=== PATIENT | female | born 1945 | race Caucasian/White ===

== ENCOUNTER 2016-07-28 10:05 | Outpatient (CLI) | payer MEDICARE, OTHER ==
--- NOTE | 2016-08-01 21:47 | Mammography Report ---
DIGITAL BILATERAL SCREENING MAMMOGRAM: 08/01/2016 CLINICAL HISTORY: This is a 71-year-old female in for routine screening mammogram. Patient has had no family history of breast cancer. Patient has had prior breast surgery. She had a benign right breast biopsy in 1963. COMPARISON: 07/28/2015 TECHNIQUE: Craniocaudad and oblique lateral views of each breast were obtained with Hologic full field digital mammography. FINDINGS: Breast parenchymal pattern consists of scattered fibroglandular densities. No change is noted. IMPRESSION: BREASTS APPEAR RADIOGRAPHICALLY BENIGN. BIRADS CATEGORY: 1, NEGATIVE. RECOMMENDATION: ANNUAL BILATERAL SCREENING MAMMOGRAPHY. STANDARD QUALIFYING STATEMENTS 1. This examination was reviewed with the aid of Computed-Aided Detection (CAD) . 2. A negative or benign imaging report should not delay biopsy if clinically suspicious findings are present. Consider surgical consultation if warranted. More than 5% of cancers are not identified by imaging. 3. Dense breasts may obscure an underlying neoplasm. JOB #: [id number] EXT JOB #: [id number] LEON
== END 2016-07-28 10:06 | disposition home or self-care (01) ==
LOC: DI.N 10:05
PROVIDERS: ATTEND Family Medicine
DX: Z12.31 Encounter for screening mammogram for malignant neoplasm of breast (principal)
CPT/HCPCS: 77067

== ENCOUNTER 2016-09-13 07:47 | Outpatient (CLI) | payer MEDICARE, OTHER ==
[2016-09-13 13:14] LABS: ALBUMIN/GLOBULIN RATIO 1.4 (1.0-2.2); BASOPHILS # (AUTO) 0.1 10^3/uL (0.0-0.1); BASOPHILS % (AUTO) 1.4 %; BILIRUBIN,TOTAL 0.5 mg/dL (0.2-1.0); BUN - BLOOD UREA NITROGEN 17 mg/dL (6-20); CALCIUM 9.5 mg/dL (8.5-10.3); CARBON DIOXIDE - CO2 30 mmol/L (21-32); CHLORIDE 104 mmol/L (101-111); CHOL/HDL RATIO 3.7 (<4.4); CHOLESTEROL 184 mg/dL; CREATININE 1.1 mg/dL (0.4-1.0); EOSINOPHILS # (AUTO) 0.2 10^3/uL (0.0-0.7); EOSINOPHILS % (AUTO) 2.4 %; GFR - MDRD 49 (>89); GLUCOSE 84 mg/dL (70-100); HCT - HEMATOCRIT 42.7 % (37.0-47.0); HDL CHOLESTEROL 50 mg/dL; HGB - HEMOGLOBIN 14.8 g/dL (12.0-16.0); LDL/HDL RATIO 1.9 (<4.4); LYMPHOCYTES % (AUTO) 29.5 %; MEAN CORPUSCULAR HEMOGLOBIN 30.5 pg (27.0-31.0); MEAN CORPUSCULAR HGB CONC 34.5 g/dL (32.0-36.0); MEAN CORPUSCULAR VOLUME 88.4 fL (81.0-99.0); MEAN PLATELET VOLUME 8.1 fL (7.9-10.8); MONOCYTES # (AUTO) 0.6 10^3/uL (0.0-1.0); NEUTROPHILS # (AUTO) 3.9 10^3/uL (1.5-6.6); NEUTROPHILS % (AUTO) 57.7 %; RED BLOOD COUNT 4.83 10^6/uL (4.20-5.40); RED CELL DISTRIBUTION WIDTH 13.2 % (12.0-15.0); SODIUM 141 mmol/L (135-145); TRIGLYCERIDES 197 mg/dL; UNCORRECTED WHITE BLOOD COUNT 6.8 x10^3/uL; VLDL CHOLESTEROL 39 mg/dL; WHITE BLOOD COUNT 6.8 x10^3/uL (4.8-10.8)
== END 2016-09-13 07:48 | disposition home or self-care (01) ==
LOC: LAB.WCP 07:47
PROVIDERS: ATTEND Family Medicine
DX: I10 Essential (primary) hypertension (principal); E78.5 Hyperlipidemia, unspecified; E03.9 Hypothyroidism, unspecified
CPT/HCPCS: 36415; 80053; 80061; 84443; 85025

== ENCOUNTER 2016-10-09 09:21 | Outpatient (CLI) | payer MEDICARE, OTHER ==
--- NOTE | 2016-10-09 13:38 | Ultrasound Report ---
BILATERAL LOWER EXTREMITY ARTERIAL DUPLEX: 10/09/2016 CLINICAL INDICATION: Intermittent claudication. TECHNIQUE: Real-time sonographic vascular imaging was performed by the rum processing operator through the lower extremities utilizing both color-flow and Doppler spectral analysis. Multiple field support representative static images were saved for review. RIGHT SIDE SITE PSV WAVEFORM STEN HAND DRAWER IN HELPER 91 biphasic PSFA 73 biphasic MSFA 67 biphasic DSFA 48 biphasic PFA 94 biphasic POP 62 biphasic DEMARCO 40 biphasic COMMUNITY NURSE 30 biphasic PER 45 biphasic DPA 36 biphasic LEFT SIDE SITE PSV WAVEFORM STEN HAND DRAWER IN HELPER 103 biphasic PSFA 102 biphasic MSFA 64 biphasic DSFA 92 biphasic PFA 98 biphasic POP 72 biphasic DEMARCO 32 biphasic COMMUNITY NURSE 37 biphasic PER 47 biphasic DPA 52 biphasic FINDINGS: RIGHT LEG: Waveforms are diffusely biphasic. There is no evidence of a focal velocity increase to suggest a hemodynamically significant stenosis. LEFT LEG: Waveforms are diffusely biphasic. There is no evidence of a focal velocity increase to suggest a hemodynamically significant stenosis. IMPRESSION: NO EVIDENCE OF A HEMODYNAMICALLY SIGNIFICANT ARTERIAL STENOSIS IN EITHER LEG. MTDD
== END 2016-10-09 09:22 | disposition home or self-care (01) ==
LOC: DI 09:21
PROVIDERS: ATTEND Physician Assistant Medical
DX: I73.9 Peripheral vascular disease, unspecified (principal); I25.10 Atherosclerotic heart disease of native coronary artery without angina pectoris
CPT/HCPCS: 93925

== ENCOUNTER 2017-02-12 08:00 | Outpatient (CLI) | payer MEDICARE, OTHER ==
[2017-02-12 12:29] LABS: BASOPHILS # (AUTO) 0.1 10^3/uL (0.0-0.1); BASOPHILS % (AUTO) 1.9 %; EOSINOPHILS # (AUTO) 0.2 10^3/uL (0.0-0.7); HCT - HEMATOCRIT 42.9 % (37.0-47.0); HGB - HEMOGLOBIN 14.8 g/dL (12.0-16.0); LYMPHOCYTES # (AUTO) 1.9 10^3/uL (1.5-3.5); LYMPHOCYTES % (AUTO) 26.7 %; MEAN CORPUSCULAR HEMOGLOBIN 30.5 pg (27.0-31.0); MEAN CORPUSCULAR HGB CONC 34.5 g/dL (32.0-36.0); MEAN CORPUSCULAR VOLUME 88.2 fL (81.0-99.0); MEAN PLATELET VOLUME 8.2 fL (7.9-10.8); MONOCYTES # (AUTO) 0.6 10^3/uL (0.0-1.0); MONOCYTES % (AUTO) 8.9 %; NEUTROPHILS # (AUTO) 4.2 10^3/uL (1.5-6.6); NEUTROPHILS % (AUTO) 59.5 %; NUCLEATED RED BLOOD CELLS AUTO 0.1 /100WBC; RED BLOOD COUNT 4.86 10^6/uL (4.20-5.40); RED CELL DISTRIBUTION WIDTH 13.3 % (12.0-15.0)
[2017-02-12 12:42] LABS: ALBUMIN/GLOBULIN RATIO 1.5 (1.0-2.2); BILIRUBIN,TOTAL 0.6 mg/dL (0.2-1.0); BUN - BLOOD UREA NITROGEN 19 mg/dL (6-20); CALCIUM 9.6 mg/dL (8.5-10.3); CARBON DIOXIDE - CO2 26 mmol/L (21-32); CHLORIDE 105 mmol/L (101-111); CHOL/HDL RATIO 3.7 (<4.4); CHOLESTEROL 193 mg/dL; GFR - MDRD 54 (>89); GLUCOSE 95 mg/dL (70-100); HDL CHOLESTEROL 52 mg/dL; SODIUM 140 mmol/L (135-145); TOTAL PROTEIN 7.3 g/dL (6.7-8.2); TRIGLYCERIDES 174 mg/dL; VLDL CHOLESTEROL 35 mg/dL
[2017-02-12 12:43] LABS: BILIRUBIN,URINE NEGATIVE (NEGATIVE); PH,URINE 5.5 PH (5.0-7.5)
[2017-02-12 12:56] LABS: THYROID STIMULATING HORMONE 7.23 uIU/mL (0.34-5.60)
[2017-02-12 13:06] LABS: UR CULTURE IF IND NOT INDICATED; WBC,URINE 0-3 /HPF (0-5)
== END 2017-02-12 08:01 | disposition home or self-care (01) ==
LOC: LAB.WCP 08:00
PROVIDERS: ATTEND Family Medicine
DX: I10 Essential (primary) hypertension (principal); R31.9 Hematuria, unspecified; E03.9 Hypothyroidism, unspecified
CPT/HCPCS: 36415; 80053; 80061; 81001; 84439; 84443; 85025; 87086

== ENCOUNTER 2017-02-16 07:59 | Outpatient (CLI) | payer MEDICARE, OTHER ==
[2017-02-16] MEDS ORDERED: IOPAMIDOL-300 50 ML VIAL ONE (08:16)
[2017-02-16] MEDS ORDERED: IOPAMIDOL-300 100 ML VIAL ONE (08:16)
[2017-02-16] MEDS ORDERED: IOPAMIDOL-300 100 ML VIAL IVP ONE (09:43)
[2017-02-16] MEDS ORDERED: IOPAMIDOL-300 50 ML VIAL PO ONE (09:43)
--- NOTE | 2017-02-18 14:44 | CT Report ---
EXAM: CT ABDOMEN AND PELVIS EXAM DATE: 02/16/2017 09:46 AM. CLINICAL HISTORY: ABDOMINAL PAIN,LLQ. CHANGES IN BOWELS. COMPARISONS: CT 06/21/2015. TECHNIQUE: Routine helical CT imaging was performed through the abdomen and pelvis. IV contrast: 50 m L Isovue 300. Enteric contrast: Positive. Reconstructions: Coronal and sagittal. In accordance with CT protocol optimization, one or more of the following dose reduction techniques w ere utilized for this exam: automated exposure control, adjustment of mA and/or KV based on patient s ize, or use of iterative reconstructive technique. FINDINGS: Lung Bases: Calcified right hilar, mediastinal lymph nodes. Linear scarring/atelectasis in the lingul a. Liver: Normal. No masses. Gallbladder/Bile Ducts: Unremarkable. Spleen: Normal. Pancreas: Normal. Adrenal Glands: Normal. Kidneys: No hydronephrosis or solid renal mass. Right lower pole renal cortical hypodensity appears t o be fat density, likely small angiomyolipoma, stable from prior. Peritoneal Cavity/Bowel: No free air or free fluid. No lymphadenopathy. Mild diverticulosis without e vidence of acute diverticulitis. Appendix is not clearly visualized; no pericecal inflammatory change s are evident. There are a few nonspecific subcentimeter bilateral inguinal lymph nodes, which may be reactive. Pelvic Organs: The uterus is absent. Adnexal structures are unremarkable. Urinary bladder is unremark able. Vasculature: Unremarkable. Scattered mild atherosclerotic calcification. Bones: No acute abnormality. Moderate bilateral hip joint DJD. Lumbar spinal degeneration. Other: None. IMPRESSION: 1. No convincing acute abdominopelvic findings. 2. Stable small right renal angiomyolipoma. 3. Diverticulosis without evidence of diverticulitis. 4. Hysterectomy. 5. Other findings as noted above. [facility] Referring Provider Line: [phone] SITE ID: [id number]
== END 2017-02-16 08:00 | disposition home or self-care (01) ==
LOC: DI 07:59
PROVIDERS: ATTEND Physician Assistant Medical
DX: R10.32 Left lower quadrant pain (principal); D17.71 Benign lipomatous neoplasm of kidney; K57.30 Diverticulosis of large intestine without perforation or abscess without bleeding; Z90.710 Acquired absence of both cervix and uterus
CPT/HCPCS: 74177

== ENCOUNTER 2017-02-16 11:49 | Emergency (ER) | payer MEDICARE, OTHER ==
[2017-02-16 12:09] VITALS: BP 157/102
--- NOTE | 2017-02-16 12:38 | ED Physician Documentation ---
PD HPI UPPER EXT INJURY - Stated complaint Stated Complaint: MED REACTION/L ARM PX - Chief complaint Chief Complaint: Ext Problem - History obtained from History obtained from: Patient - History of Present Illness Location: Other (She was having IV contrast enhanced CT scan for some ongoing abdominal complaints order as an outpatient today, she had a small amount of contrast infiltration in the left antecubital fossa with extreme pain at the time but the pain is much better now and she declines any pain medication.) Review of Systems Constitutional: reports: Reviewed and negative Cardiac: reports: Reviewed and negative Respiratory: reports: Reviewed and negative PD PAST MEDICAL HISTORY - Past Medical History Cardiovascular: Hypertension Respiratory: Asthma Neuro: Headache/migraine Endocrine/Autoimmune: HyPOthyroidism GI: Chronic constipation : None HEENT: Chronic vision loss Psych: None Musculoskeletal: Osteoarthritis Derm: Psoriasis - Past Surgical History 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 HEENT: Tonsil/Adenoidectomy - Present Medications Home Medications: Ambulatory Orders Medication Instructions Recorded Confirmed Amitriptyline HCl 25 mg PO DAILY 09/24/14 06/08/15 Benazepril/Hydrochlorothiazide 20 mg PO DAILY 09/24/14 06/08/15 [Benazepril-Hctz 20-12.5 mg Tab] Calcium Carbonate [Calcium] 500 mg PO DAILY 09/24/14 06/08/15 Celecoxib [Celebrex] 200 mg PO DAILY 09/24/14 06/08/15 Cetirizine HCl [All Day Allergy] 10 mg PO DAILY 09/24/14 06/08/15 Cyanocobalamin (Vitamin B-12) 500 mcg PO DAILY 09/24/14 06/08/15 [B-12] Fish Oil/Dha/Epa [Fish Oil 1,200 1 tab ORAL DAILY 09/24/14 06/08/15 mg Fish Oil] Levothyroxine Sodium 100 mcg PO DAILY 09/24/14 06/08/15 Magnesium 250 mg PO DAILY 09/24/14 06/08/15 Multivitamin/Iron/Folic Acid [Eq 1 tab PO DAILY 09/24/14 06/08/15 Complete Multivitamin Tab] Omeprazole [PriLOSEC] 20 mg PO DAILY 09/24/14 06/08/15 Simvastatin 40 mg PO DAILY 09/24/14 06/08/15 Vit E AC/Vit K1/Safflower Oil 400 mg PO DAILY 09/24/14 06/08/15 [Vitamin E Oil-Vitamin K] Acyclovir 800 mg ORAL DAILY 06/08/15 06/08/15 Ondansetron HCl [Zofran] 4 mg PO Q6H PRN #10 tablet 06/08/15 SUMAtriptan [Imitrex] 25 mg PO BID PRN #10 tablet 06/08/15 - Allergies Allergies/Adverse Reactions: Allergies Allergy/AdvReac Type Severity Reaction Status Date / Time ibuprofen [From Motrin] Allergy Severe Anaphylaxis Verified 02/16/17 12:09 nifedipine [From Adalat] Allergy Severe Edema Verified 02/16/17 12:09 codeine AdvReac Intermediate Emesis Verified 02/16/17 12:09 - Social History Does the pt smoke?: No Smoking Status: Never smoker Does the pt drink ETOH?: No Does the pt have substance abuse?: No - Immunizations Immunizations are current?: Yes PD ED PE NORMAL - Vitals Vital signs reviewed: Yes - General General: Alert and oriented X 3, No acute distress - Extremities Extremities: Other (In the left antecubital fossa I can see where the IV was. The IV has since been removed. There is a small area of swelling there, I would estimate no more than 10 mL of contrast infiltration. There is no tenderness and she has full range of motion of the elbow, good pulses at the wrist, good sensation in all areas of the hand.) - Neuro Neuro: Alert and oriented X 3, Normal speech Results - Vitals Vitals: Vital Signs - 24 hr 02/16/17 12:03 Temperature 36.8 C Heart Rate 58 L Respiratory 16 Rate Blood Pressure 157/102 H O2 Saturation 99 Oxygen O2 Source Room air Departure - Departure Disposition: 01 Home, Self Care Clinical Impression: Contrast media adverse reaction Qualifiers: Encounter type: initial encounter Qualified Code(s): T50.8X5A - Adverse effect of diagnostic agents, initial encounter Condition: Good Record reviewed to determine appropriate education?: Yes Comments: As discussed if pain becomes worse or unbearable despite Tylenol please return for reevaluation, otherwise apply heat and elevate it. Your blood pressure was elevated today on check into the emergency department. This does not mean that you have hypertension, it is a common phenomenon to come to the emergency department and have elevated blood pressure. I recommend that you see your primary care physician within the week to have it rechecked when you are feeling better.
== END 2017-02-16 12:58 | disposition home or self-care (01) ==
LOC: ED 11:49
DX: M79.602 Pain in left arm (principal); T50.8X5A Adverse effect of diagnostic agents, initial encounter; I10 Essential (primary) hypertension; E03.9 Hypothyroidism, unspecified
CPT/HCPCS: 74177; 99282; Q9967

== ENCOUNTER 2017-04-29 10:51 | Emergency (ER) | payer MEDICARE, OTHER ==
[2017-04-29 11:40] LABS: BASOPHILS # (AUTO) 0.1 10^3/uL (0.0-0.1); BASOPHILS % (AUTO) 1.4 %; EOSINOPHILS # (AUTO) 0.2 10^3/uL (0.0-0.7); EOSINOPHILS % (AUTO) 2.4 %; HGB - HEMOGLOBIN 15.3 g/dL (12.0-16.0); LYMPHOCYTES # (AUTO) 1.6 10^3/uL (1.5-3.5); LYMPHOCYTES % (AUTO) 19.9 %; MEAN CORPUSCULAR HEMOGLOBIN 30.8 pg (27.0-31.0); MEAN CORPUSCULAR HGB CONC 34.5 g/dL (32.0-36.0); MEAN CORPUSCULAR VOLUME 89.3 fL (81.0-99.0); MEAN PLATELET VOLUME 8.2 fL (7.9-10.8); MONOCYTES # (AUTO) 0.7 10^3/uL (0.0-1.0); MONOCYTES % (AUTO) 8.6 %; NEUTROPHILS # (AUTO) 5.4 10^3/uL (1.5-6.6); NEUTROPHILS % (AUTO) 67.7 %; PLT - PLATELET COUNT 240 10^3/uL (130-450); RED BLOOD COUNT 4.98 10^6/uL (4.20-5.40); RED CELL DISTRIBUTION WIDTH 13.2 % (12.0-15.0); WHITE BLOOD COUNT 7.9 x10^3/uL (4.8-10.8)
[2017-04-29 11:52] LABS: ALBUMIN 4.5 g/dL (3.2-5.5); ALBUMIN/GLOBULIN RATIO 1.6 (1.0-2.2); BILIRUBIN,TOTAL 0.9 mg/dL (0.2-1.0); CALCIUM 9.8 mg/dL (8.5-10.3); CREATININE 1.4 mg/dL (0.4-1.0); TOTAL PROTEIN 7.3 g/dL (6.7-8.2)
[2017-04-29 12:04] LABS: BILIRUBIN,URINE NEGATIVE (NEGATIVE); GLUCOSE, URINE (UA) NEGATIVE (NEGATIVE); KETONES,URINE (UA) TRACE mg/dL (NEGATIVE); LEUKOCYTE ESTERASE, URINE NEGATIVE (NEGATIVE); NITRITE,URINE NEGATIVE (NEGATIVE); OCCULT BLOOD,URINE NEGATIVE (NEGATIVE); PH,URINE 5.5 PH (5.0-7.5); PROTEIN,URINE TRACE mg/dL (NEGATIVE); UROBILINOGEN,URINE 0.2 (NORMAL) E.U./dL (NORMAL)
[2017-04-29 12:06] LABS: CLARITY,URINE CLEAR (CLEAR)
--- NOTE | 2017-04-29 12:48 | ED Physician Documentation ---
PD HPI SYNCOPE - Stated complaint Stated Complaint: SYNCOPE - Chief complaint Chief Complaint: Neuro - History obtained from History obtained from: Patient, Family - History of Present Illness Witnessed: Witnessed Timing - onset: Enter time, Today Duration: Seconds Preceding symptoms: Vision changes, Diaphoresis, Light headed, Generalized weakness Associated symptoms: No: Seizure, Incontinant of urine, Incontinant of stool, Headache, Vision changes, Chest pain, Palpitations, Diaphoresis, Dyspnea Contributing factors: Other (The patient has had loose stool for some time) Injury occurred: None Similar symptoms before: Has not had sx before Recently seen: Not recently seen - Additional information Additional information: 72-year-old female was in her usual state of health when she went to [facility] this morning and she was standing in [facility] she developed lightheadedness dizziness blurring of her vision and had to sit down she had about a 10 second episode of syncope after sitting and that she recovered. She is feeling weak nauseated and diaphoretic Review of Systems Constitutional: reports: Fatigue. denies: Fever, Chills, Myalgias Eyes: denies: Decreased vision Ears: denies: Ear pain Nose: denies: Congestion Throat: denies: Sore throat Cardiac: denies: Chest pain / pressure, Palpitations Respiratory: denies: Dyspnea, Cough GI: reports: Diarrhea. denies: Abdominal Pain, Nausea, Vomiting : denies: Dysuria, Frequency Skin: denies: Rash Musculoskeletal: denies: Neck pain, Back pain, Extremity pain Neurologic: reports: Generalized weakness, Syncope. 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 HEENT: Tonsil/Adenoidectomy - Present Medications Home Medications: Ambulatory Orders Medication Instructions Recorded Confirmed Amitriptyline HCl 25 mg PO DAILY 09/24/14 04/29/17 Benazepril/Hydrochlorothiazide 20 mg PO DAILY 09/24/14 04/29/17 [Benazepril-Hctz 20-12.5 mg Tab] Calcium Carbonate [Calcium] 500 mg PO DAILY 09/24/14 04/29/17 Celecoxib [Celebrex] 200 mg PO DAILY 09/24/14 04/29/17 Cetirizine HCl [All Day Allergy] 10 mg PO DAILY 09/24/14 04/29/17 Fish Oil/Dha/Epa [Fish Oil 1,200 1 tab ORAL DAILY 09/24/14 04/29/17 mg Fish Oil] Levothyroxine Sodium 100 mcg PO DAILY 09/24/14 04/29/17 Magnesium 250 mg PO DAILY 09/24/14 04/29/17 Multivitamin/Iron/Folic Acid [Eq 1 tab PO DAILY 09/24/14 04/29/17 Complete Multivitamin Tab] Omeprazole [PriLOSEC] 20 mg PO DAILY 09/24/14 04/29/17 Simvastatin 40 mg PO DAILY 09/24/14 04/29/17 Vit E AC/Vit K1/Safflower Oil 400 mg PO DAILY 09/24/14 04/29/17 [Vitamin E Oil-Vitamin K] Acyclovir 800 mg ORAL DAILY 06/08/15 04/29/17 SUMAtriptan [Imitrex] 25 mg PO BID PRN #10 tablet 06/08/15 04/29/17 Propranolol [Inderal] 80 mg PO DAILY 04/29/17 04/29/17 - Allergies Allergies/Adverse Reactions: Allergies Allergy/AdvReac Type Severity Reaction Status Date / Time ibuprofen [From Motrin] Allergy Severe Anaphylaxis Verified 02/16/17 12:09 nifedipine [From Adalat] Allergy Severe Edema Verified 02/16/17 12:09 codeine AdvReac Intermediate Emesis Verified 02/16/17 12:09 - Social History Does the pt smoke?: No Smoking Status: Never smoker Does the pt drink ETOH?: No Does the pt have substance abuse?: No - Immunizations Immunizations are current?: Yes - POLST Patient has POLST: No PD ED PE NORMAL - Vitals Vital signs reviewed: Yes (Hypertensive mild) - HEENT HEENT: Atraumatic, PERRL, EOMI - Neck Neck: Supple, no meningeal sign, No bony TTP - Cardiac Cardiac: RRR, No murmur - Respiratory Respiratory: No respiratory distress, Clear bilaterally - Abdomen Abdomen: Normal bowel sounds, Soft, Non tender, Non distended, No organomegaly - Back Back: No CVA TTP, No spinal TTP - Derm Derm: Normal color, Warm and dry, No rash - Extremities Extremities: No deformity, No edema - Neuro Neuro: Alert and oriented X 3, 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, No motor deficit, No sensory deficit, Normal speech Eye Opening: Spontaneous Motor: Obeys Commands Verbal: Oriented GCS Score: 15 - Psych Psych: Normal mood, Normal affect Results - Vitals Vitals: Vital Signs - 24 hr 04/29/17 04/29/17 04/29/17 11:07 11:40 12:00 Temperature 36.1 C L Heart Rate 50 L 44 L Heart Rate [ 52 L Sitting] Heart Rate [ 56 L Standing] Heart Rate [ 47 L Supine] Respiratory 14 16 Rate Blood Pressure 135/60 H 132/65 H Blood Pressure 122/77 [Sitting] Blood Pressure 125/77 [Standing] Blood Pressure 132/72 H [Supine] O2 Saturation 97 98 04/29/17 12:44 Temperature Heart Rate 45 L Heart Rate [ Sitting] Heart Rate [ Standing] Heart Rate [ Supine] Respiratory 16 Rate Blood Pressure 119/59 L Blood Pressure [Sitting] Blood Pressure [Standing] Blood Pressure [Supine] O2 Saturation 99 Oxygen O2 Source Room air - EKG (time done) 1105 Rate: Rate (enter#) (50) Rhythm: Sinus bradycardia [place]: LAD QRS: Poor R wave progression Ischemia: Normal ST segments Compare to prior EKG: Old EKG unavailable Computer interpretation: Agree with computer - Labs Labs: Laboratory Tests 04/29/17 04/29/17 04/29/17 11:25 11:28 11:28 WBC 7.9 RBC 4.98 Hgb 15.3 Hct 44.5 MCV 89.3 MCH 30.8 MCHC 34.5 RDW 13.2 Plt Count 240 MPV 8.2 Neut # 5.4 Lymph # 1.6 [place] # 0.7 Eos # 0.2 Baso # 0.1 Absolute Nucleated RBC 0.00 Nucleated RBC % 0.0 Sodium 138 Potassium 4.2 Chloride 104 Carbon Dioxide 25 Anion Gap 9.0 BUN 30 H Creatinine 1.4 H Estimated GFR (MDRD) 37 L Glucose 119 H POC Whole Bld Glucose Calcium 9.8 Total Bilirubin 0.9 AST 31 ALT 20 Alkaline Phosphatase 44 Troponin I < 0.04 Total Protein 7.3 Albumin 4.5 Globulin 2.8 Albumin/Globulin Ratio 1.6 Lipase 38 Urine Color Urine Clarity Urine pH Ur Specific [place] Urine Protein Urine Glucose (UA) Urine Ketones Urine Occult Blood Urine Nitrite Urine Bilirubin Urine Urobilinogen Ur Leukocyte Esterase Ur Microscopic Review Urine Culture Comments 04/29/17 04/29/17 11:38 11:50 WBC RBC Hgb Hct MCV MCH MCHC RDW Plt Count MPV Neut # Lymph # [place] # Eos # Baso # Absolute Nucleated RBC Nucleated RBC % Sodium Potassium Chloride Carbon Dioxide Anion Gap BUN Creatinine Estimated GFR (MDRD) Glucose POC Whole Bld Glucose 110 H Calcium Total Bilirubin AST ALT Alkaline Phosphatase Troponin I Total Protein Albumin Globulin Albumin/Globulin Ratio Lipase Urine Color YELLOW Urine Clarity CLEAR Urine pH 5.5 Ur Specific [place] 1.025 Urine Protein TRACE Urine Glucose (UA) NEGATIVE Urine Ketones TRACE Urine Occult Blood NEGATIVE Urine Nitrite NEGATIVE Urine Bilirubin NEGATIVE Urine Urobilinogen 0.2 (NORMAL) Ur Leukocyte Esterase NEGATIVE Ur Microscopic Review NOT INDICATED Urine Culture Comments NOT INDICATED Procedures - IVC sono (time) 68248 Bedside IVC sono: IVC measures (cm) (1.02), IVC collapsed c insp (cm) (complete) , Dehydration (est 1.5 liter deficit) PD MEDICAL DECISION MAKING - ED course Complexity details: considered differential, d/w patient ED course: 32-year-old female with a syncopal episode at [facility] today is found to be dehydrated. She has been having some loose stool for some time now I suspect she may have something insensible water loss related to that. She also thinks she may not have had as much to drink in the last 2 days as she usually does. She does think that she drinks fluids throughout the day Departure - Departure Disposition: 01 Home, Self Care Clinical Impression: Dehydration Condition: Stable Instructions: ED Dehydration Follow-Up: Yary Gibson PA-C [Primary Care Provider] -
[2017-04-29] MEDS ORDERED: SODIUM CHLORIDE 0.9% 1,000 ML IV ONE (13:00)
[2017-04-29 13:35] VITALS: BP 132/57
== END 2017-04-29 14:30 | disposition home or self-care (01) ==
LOC: ED 10:51
DX: E86.0 Dehydration (principal); I10 Essential (primary) hypertension; J45.909 Unspecified asthma, uncomplicated; E03.9 Hypothyroidism, unspecified; M19.90 Unspecified osteoarthritis, unspecified site
CPT/HCPCS: 36415; 80053; 81001; 81003; 83690; 84484; 85025; 87086; 93005; 96360; 99284

== ENCOUNTER 2017-06-18 07:33 | Outpatient (CLI) | payer MEDICARE, OTHER ==
[2017-06-18 12:58] LABS: BASOPHILS # (AUTO) 0.1 10^3/uL (0.0-0.1); BASOPHILS % (AUTO) 1.8 %; EOSINOPHILS # (AUTO) 0.2 10^3/uL (0.0-0.7); EOSINOPHILS % (AUTO) 3.4 %; HGB - HEMOGLOBIN 14.9 g/dL (12.0-16.0); LYMPHOCYTES # (AUTO) 2.1 10^3/uL (1.5-3.5); LYMPHOCYTES % (AUTO) 30.7 %; MEAN CORPUSCULAR HEMOGLOBIN 30.8 pg (27.0-31.0); MEAN CORPUSCULAR HGB CONC 34.5 g/dL (32.0-36.0); MEAN CORPUSCULAR VOLUME 89.1 fL (81.0-99.0); MEAN PLATELET VOLUME 8.6 fL (7.9-10.8); MONOCYTES # (AUTO) 0.8 10^3/uL (0.0-1.0); MONOCYTES % (AUTO) 11.4 %; NEUTROPHILS # (AUTO) 3.7 10^3/uL (1.5-6.6); NEUTROPHILS % (AUTO) 52.7 %; PLT - PLATELET COUNT 260 10^3/uL (130-450); RED BLOOD COUNT 4.86 10^6/uL (4.20-5.40)
[2017-06-18 13:19] LABS: ALBUMIN 4.3 g/dL (3.2-5.5); ALBUMIN/GLOBULIN RATIO 1.5 (1.0-2.2); ALKALINE PHOSPHATASE 51 IU/L (42-121); ALT ALANINE AMINOTRANSFERASE 16 IU/L (10-60); AST ASPARTATE AMINOTRANSFERASE 24 IU/L (10-42); BILIRUBIN,TOTAL 0.5 mg/dL (0.2-1.0); BUN - BLOOD UREA NITROGEN 15 mg/dL (6-20); CALCIUM 9.5 mg/dL (8.5-10.3); CARBON DIOXIDE - CO2 29 mmol/L (21-32); CHLORIDE 106 mmol/L (101-111); CHOL/HDL RATIO 5.7 (<4.4); CHOLESTEROL 274 mg/dL; GFR - MDRD 54 (>89); GLUCOSE 87 mg/dL (70-100); HDL CHOLESTEROL 48 mg/dL; LDL CHOLESTEROL,CALCULATED 188 mg/dL; LDL/HDL RATIO 3.9 (<4.4); SODIUM 139 mmol/L (135-145); TOTAL PROTEIN 7.1 g/dL (6.7-8.2); VLDL CHOLESTEROL 38 mg/dL
== END 2017-06-18 07:34 | disposition home or self-care (01) ==
LOC: LAB.WCP 07:33
PROVIDERS: ATTEND Family Medicine
DX: I10 Essential (primary) hypertension (principal); E78.5 Hyperlipidemia, unspecified; E03.9 Hypothyroidism, unspecified
CPT/HCPCS: 36415; 80053; 80061; 83721; 84443; 85025

== ENCOUNTER 2017-08-08 10:08 | Outpatient (CLI) | payer MEDICARE, OTHER ==
--- NOTE | 2017-08-09 17:14 | Mammography Report ---
DIGITAL SCREENING MAMMOGRAM: 08/08/2017 CLINICAL INDICATION: A 72-year-old with history of benign right breast biopsy for screening. TECHNIQUE: Routine CC and MLO projections were obtained of the breasts. COMPARISON: 07/2016, 07/2015. FINDINGS: The breasts again demonstrate scattered fibroglandular densities bilaterally. Postoperative changes in the right breast are stable. Coarse and punctate, typically benign calcifications are present. No suspicious masses, clustered microcalcifications, or regions of architectural distortion are identified. IMPRESSION: BENIGN FINDINGS. RECOMMENDATION: Routine annual screening unless otherwise clinically indicated. BIRADS category 2 benign findings. STANDARD QUALIFYING STATEMENTS 1. This examination was reviewed with the aid of Computed-Aided Detection (CAD). 2. A negative or benign imaging report should not delay biopsy if clinically suspicious findings are present. Consider surgical consultation if warranted. More than 5% of cancers are not identified by imaging. 3. Dense breasts may obscure an underlying neoplasm. TD: 08/09/2017 15:26
== END 2017-08-08 10:09 | disposition home or self-care (01) ==
LOC: DI.N 10:08
PROVIDERS: ATTEND Family Medicine
DX: Z12.31 Encounter for screening mammogram for malignant neoplasm of breast (principal)
CPT/HCPCS: 77067

== ENCOUNTER 2017-12-18 08:10 | Outpatient (CLI) | payer MEDICARE, OTHER ==
[2017-12-18 12:49] LABS: CHOLESTEROL 155 mg/dL; HDL CHOLESTEROL 51 mg/dL; LDL CHOLESTEROL,CALCULATED 74 mg/dL; LDL/HDL RATIO 1.5 (<4.4); VLDL CHOLESTEROL 30 mg/dL
== END 2017-12-18 08:11 ==
LOC: LAB.WCP 08:10
PROVIDERS: ATTEND Family Medicine
DX: E78.5 Hyperlipidemia, unspecified (principal)
CPT/HCPCS: 36415; 80061; 83721

== ENCOUNTER 2018-01-07 09:28 | Outpatient (CLI) | payer MEDICARE, OTHER ==
[2018-01-07 12:36] LABS: HGB - HEMOGLOBIN 14.6 g/dL (12.0-16.0); MEAN CORPUSCULAR HEMOGLOBIN 30.9 pg (27.0-31.0); MEAN CORPUSCULAR HGB CONC 34.8 g/dL (32.0-36.0); MEAN CORPUSCULAR VOLUME 88.6 fL (81.0-99.0); MEAN PLATELET VOLUME 8.3 fL (7.9-10.8); RED BLOOD COUNT 4.74 10^6/uL (4.20-5.40); RED CELL DISTRIBUTION WIDTH 13.2 % (12.0-15.0); WHITE BLOOD COUNT 6.6 x10^3/uL (4.8-10.8)
[2018-01-07 13:00] LABS: CRP - C-REACTIVE PROTEIN < 1.0 mg/dL (0-1.0)
== END 2018-01-07 09:29 | disposition home or self-care (01) ==
LOC: LAB.WCP 09:28
PROVIDERS: ATTEND Family Medicine
DX: H20.9 Unspecified iridocyclitis (principal)
CPT/HCPCS: 36415; 84550; 85027; 85651; 86140; 86200

== ENCOUNTER 2018-03-07 13:04 | Outpatient (CLI) | payer MEDICARE, OTHER ==
--- NOTE | 2018-03-08 09:16 | DEXA Report ---
Reason: OSTEOPOROSIS Procedure Date: 03/07/2018 Accession Number: [id number] / [id number] Procedure: DEX - Dexa Spine and/or Hip CPT Code: FULL RESULT: EXAM: Dexa Spine and/or Hip DATE: 03/07/2018 1:15 PM CLINICAL HISTORY: OSTEOPOROSIS TECHNIQUE: Dual energy x-ray absorptiometry (DXA) was performed on a [employer] System. Regions measured are the AP Spine, femoral neck, and if needed forearm. COMPARISON: 11/23/2015 In accordance with the International Society for Clinical Densitometry (ISCD) guidelines, data from previous exams may be reanalyzed using current recommendations and techniques. This is done to allow a more accurate basis for comparison with the current study. FINDINGS: The data for the lumbar spine is as follows: BMD (g/cm/cm) T-SCORE Z-SCORE REGION L1 1.191 0.5 2.0 L2 1.263 0.5 2.0 L3 1.441 2.0 3.5 L4 1.579 3.2 4.6 TOTAL 1.367 1.6 3.0 NOTE: All evaluable vertebrae are used for classification The data for the hip is as follows: BMD (g/cm/cm) T-SCORE Z-SCORE REGION Neck 1.074 0.3 2.0 TOTAL 0.810 -1.6 0.0 NOTE: The femoral neck or total proximal femur, whichever is lowest, is used for classification. DXA RESULTS SUMMARY: Spine SCAN DATE AGE BMD CHANGE VS CHANGE VS PREVIOUS PREVIOUS % [birth year]07/2018 [age] 1.367 0.142* 11.6* 11/23/2015 [age] 1.225 * Denotes significant change at the 95% confidence level. Denotes dissimilar scan types or analysis methods. DXA RESULTS SUMMARY: Hip SCAN DATE AGE BMD CHANGE VS CHANGE VS PREVIOUS PREVIOUS % [birth year]07[birth year]2018 73.1 0.810 0.154* 23.5* 11/23/2015 [age] 0.656 * Denotes significant change at the 95% confidence level. Denotes dissimilar scan types or analysis methods. IMPRESSION: THE WHO CLASSIFICATION BASED ON THE INTERNATIONAL REFERENCE STANDARD IS OSTEOPENIA. THE FRACTURE RISK IS INCREASED. RECOMMENDATION: Patients with diagnosis of osteoporosis or osteopenia should have regular bone mineral density assessment. For those eligible for Medicare, routine testing is allowed once every 2 years. Testing frequency can be increased for patients who have rapidly progressing disease or for those who are receiving medical therapy to restore bone mass. COMMENT: World Health Organization (WHO) definitions for osteoporosis and osteopenia: NORMAL BMD: T-score at -1.0 or higher, fracture risk is low OSTEOPENIA BMD: T-score between -1.0 and -2.5, fracture risk is increased. OSTEOPOROSIS BMD: T-score at -2.5 or lower, fracture risk is high. National Osteoporosis Foundation recommends: 1. Obtain adequate dietary calcium (at least 1200 mg per day) and vitamin D (400-800 international units per day). 2. Participate, as appropriate, in regular weightbearing and muscle-strengthening exercise. 3. Avoid tobacco use and reduce alcohol and caffeine intake. 4. For more detailed information see the website at www.NOF.org.
== END 2018-03-07 13:05 | disposition home or self-care (01) ==
LOC: DI 13:04
PROVIDERS: ATTEND Family Medicine
DX: M85.88 Other specified disorders of bone density and structure, other site (principal)
CPT/HCPCS: 77080

== ENCOUNTER 2018-05-08 11:18 | Outpatient (CLI) | payer MEDICARE, OTHER | END 2018-05-08 11:19 | disposition home or self-care (01) | LOC: LAB.WCP 11:18 | PROVIDERS: ATTEND Family Medicine | DX: H20.9 Unspecified iridocyclitis (principal); M25.50 Pain in unspecified joint | CPT/HCPCS: 36415; 81599 ==

== ENCOUNTER 2018-08-14 13:26 | Outpatient (CLI) | payer MEDICARE, OTHER ==
--- NOTE | 2018-08-15 09:05 | Mammography Report ---
Reason: SCREENING MAMMO Procedure Date: 08/14/2018 Accession Number: [id number] / [id number] Procedure: MGN - Screening Mammo Dig Bilat CPT Code: FULL RESULT: EXAM: Screening Mammo Dig Bilat DATE: 08/14/2018 1:56 PM CLINICAL HISTORY: Screening encounter. History of benign right breast biopsy. TECHNIQUE: (B) - Bilateral CC and MLO views were obtained. COMPARISON: 08/08/2017 through 07/28/2015. PARENCHYMAL PATTERN: (A) - The breast(s) demonstrate(s) scattered fibroglandular densities. FINDINGS: Postsurgical changes are noted in the right breast, stable. There are no suspicious masses, calcifications, or areas of distortion. IMPRESSION: Benign findings. BI-RADS category 2. RECOMMENDATION: (ANNUAL) - Recommend routine annual screening mammography. BI-RADS CATEGORY: (2) - Benign Findings. STANDARD QUALIFYING STATEMENTS: 1. This examination was not reviewed with the aid of Computer-Aided Detection (CAD). 2. A negative or benign imaging report should not preclude biopsy if clinically suspicious findings are present. 3. Dense breasts may obscure an underlying neoplasm. 4. This examination was reviewed without the aid of 3D breast imaging (tomosynthesis).
== END 2018-08-14 13:27 | disposition home or self-care (01) ==
LOC: DI.N 13:26
DX: Z12.31 Encounter for screening mammogram for malignant neoplasm of breast (principal)
CPT/HCPCS: 77067

== ENCOUNTER 2018-12-26 07:08 | Day surgery (SDC) | payer MEDICARE, OTHER ==
[2018-12-26] MEDS ORDERED: fentaNYL 100 MCG/2 ML VIAL IVP ONE (07:09)
[2018-12-26] MEDS ORDERED: MIDAZOLAM 2 MG/2 ML VIAL IVP ONE (07:09)
[2018-12-26] MEDS ORDERED: KETOROLAC 0.45% OPHTH DROPS ONE (07:43)
[2018-12-26] MEDS ORDERED: PHENYLEPHRINE 2.5% OPHTH 2 ML DROPS ONE (07:43)
[2018-12-26] MEDS ORDERED: PROPARACAINE 0.5% OPHTH DROPS 15 ML ONE (07:44)
[2018-12-26] MEDS ORDERED: CYCLOPENTOLATE 1% OPHTH DROPS 2 ML ONE (07:44)
[2018-12-26] MEDS ORDERED: KETOROLAC 0.45% OPHTH DROPS LEFTEYE ONE (07:50)
[2018-12-26] MEDS ORDERED: PROPARACAINE 0.5% OPHTH DROPS 15 ML LEFTEYE ONE ×2 (07:50→08:55)
[2018-12-26] MEDS ORDERED: PHENYLEPHRINE 2.5% OPHTH 2 ML DROPS LEFTEYE ONE (07:50)
[2018-12-26] MEDS ORDERED: CYCLOPENTOLATE 1% OPHTH DROPS 2 ML LEFTEYE ONE (07:50)
[2018-12-26] MEDS ORDERED: LACTATED RINGERS 1,000 ML IV ONE (07:52)
--- NOTE | 2018-12-26 08:12 | ANESTHESIA ---
Pre-Anesthesia VS, & Labs - Diagnosis left senile combined cataract - Procedure left cataract extraction with intraocular lens implant Vital Signs: Temp Pulse Resp BP Pulse Ox 36.6 C 63 16 165/85 H 99 12/26/18 07:40 12/26/18 07:40 12/26/18 07:40 12/26/18 07:40 12/26/18 07:40 Height 5 ft 5 in Weight (kg) 67.9 kg Body Mass Index 27.8 - NPO >8 hours - Is Patient ?: No Home Medications and Allergies Benazepril/Hydrochlorothiazide [Benazepril-Hctz 20-12.5 mg Tab] 20 mg PO DAILY 09/24/14 Calcium Carbonate [Calcium] 500 mg PO DAILY 09/24/14 Cetirizine HCl [All Day Allergy] 10 mg PO DAILY 09/24/14 Levothyroxine Sodium 75 mcg PO DAILY 09/24/14 Multivitamin/Iron/Folic Acid [Eq Complete Multivitamin Tab] 1 tab PO DAILY 09/24/14 Simvastatin 40 mg PO DAILY 09/24/14 Vit E AC/Vit K1/Safflower Oil [Vitamin E Oil-Vitamin K] 400 mg PO DAILY 09/24/14 Acyclovir 500 mg ORAL DAILY 06/08/15 raNITIdine [Zantac] 150 mg PO BID 02/13/18 Allergies/Adverse Reactions: Allergies Allergy/AdvReac Type Severity Reaction Status Date / Time ibuprofen [From Motrin] Allergy Severe Anaphylaxis Verified 02/16/17 12:09 nifedipine [From Adalat] Allergy Severe Edema Verified 02/16/17 12:09 codeine AdvReac Intermediate Emesis Verified 02/16/17 12:09 Anes History & Medical History - Anesthetic History Anesthesia Complications: reports: No previous complications - Medical History Cardiovascular: reports: Hypertension, High cholesterol Pulmonary: reports: Asthma Gastrointestinal: reports: GERD, Chronic constipation Urinary: reports: None Neuro: reports: None, Migraines Musculoskeletal: reports: Osteoarthritis, Osteopenia Endocrine/Autoimmune: reports: HyPOthyroidism Blood Disorders: reports: None Skin: reports: Psoriasis Smoking Status: Never smoker - Surgical History General: Appendectomy Eyes Ears Nose Throat (EENT): Tonsil/Adenoidectomy Gynecologic: Hysterectomy Exam General: Alert Dental: WNL Neck Mobility: Normal Mallampati classification: II Thyromental Distance: greater than 6 cm Respiratory: Lungs clear Cardiovascular: Regular rate, Normal S1, Normal S2 Mental/Cognitive Status: Alert/Oriented X3 Plan Anesthesia Type: MAC Consent for Procedure(s) Verified and Reviewed: Yes Code Status: Attempt Resuscitation ASA classification: 2-Mild systemic disease Is this case an emergency?: No
[2018-12-26] MEDS ORDERED: TIMOLOL 0.5% OPHTH DROPS OPTH ONE (08:55)
[2018-12-26] MEDS ORDERED: VANCOMYCIN OPHTHALMI 8MG/0.8ML 8 MG/0.8 ML SYRINGE IO ONE ×2 (08:55→10:17)
[2018-12-26] MEDS ORDERED: EPINEPHrine 1 MG/ML AMP IVP ONE (08:55)
[2018-12-26] MEDS ORDERED: BRIMONIDINE 0.2% OPHTH DROPS 5 ML OPTH ONE (08:55)
[2018-12-26] MEDS ORDERED: BSS/LIDOCAINE/EPINEPHRINE 1 ML SYRINGE IO ONE (08:55)
[2018-12-26] MEDS ORDERED: CHONDR SULF/HYALURONATE SYRINGE IO ONE (08:55)
[2018-12-26] MEDS ORDERED: TRIAMCIN/MOXIFLOX OPHTHALMIC 0.6 ML VIAL IO ONE ×2 (09:06→10:16)
--- NOTE | 2018-12-26 09:26 | OPERATIVE REPORT ---
DATE OF SERVICE: 12/26/2018 Physician: Brennen Mckinnon MD PREOPERATIVE DIAGNOSIS: Visually significant cataract, left eye. Cataract surgery was performed on her right eye on 02/14/2018. POSTOPERATIVE DIAGNOSIS: Visually significant cataract, left eye. Cataract surgery was performed on her right eye on 02/14/2018. PROCEDURE: Phacoemulsification with posterior chamber intraocular lens implant, left eye. SURGEON: Brennen Mckinnon MD ANESTHESIA: Monitored anesthesia care. COMPLICATIONS: None. OPERATIVE INDICATIONS: This is a 73-year-old woman with progressive vision loss in the left eye due to 2 to 3+ nuclear sclerotic, 2+ cortical, and 2+ posterior subcapsular cataract. Best corrected visual acuity was 20/40, with glare to 20/300 in the left eye. Indications for surgery were difficulty seeing words on a computer screen and difficulty driving at night because of lights from other vehicles and/or street lights. She was consented at length concerning risks and benefits of cataract surgery, after which she expressed a desire to proceed with surgery. OPERATIVE PROCEDURE: The patient was taken to OR #3 and placed under monitored anesthesia care. Surgical timeout was conducted confirming correct patient, correct procedure, and correct surgical site. She was given topical anesthesia, then prepped and draped in the usual sterile fashion. The eye was entered at the 6 and 3-o'clock positions. Intracameral Shugarcaine was injected into the anterior chamber, followed by Viscoat. A continuous-tear curvilinear capsulorrhexis was performed. The nucleus was hydrodissected and phacoemulsified. Cortex was evacuated using automated infusion and aspiration. Provisc was injected in the capsular bag, and a 23.0-diopter intraocular lens was inserted in the bag. Approximately 0.8 mL of a mixture of triamcinolone, moxifloxacin, and vancomycin was injected subconjunctivally in the superior quadrant for infection and inflammation prophylaxis. I and A, was used to evacuate the viscoelastic materials. The eye was inflated to physiologic pressure using balanced salt solution and found to be watertight. The patient was taken from the operating room in good condition and given postoperative instructions. TD[facility]26/2018 09[facility]18 [facility]
[2018-12-26 09:42] VITALS: BP 154/74
[2018-12-26] MEDS ORDERED: EPINEPHrine 1 MG/ML AMP ONE (10:16)
[2018-12-26] MEDS ORDERED: BRIMONIDINE 0.2% OPHTH DROPS 5 ML ONE (10:16)
[2018-12-26] MEDS ORDERED: TIMOLOL 0.5% OPHTH DROPS ONE (10:17)
[2018-12-26] MEDS ORDERED: BSS/LIDOCAINE/EPINEPHRINE 1 ML SYRINGE ONE (10:17)
== END 2018-12-26 07:09 | disposition home or self-care (01) ==
LOC: SDS 07:08
PROVIDERS: ATTEND Ophthalmology
PROC: 08RK3JZ Replacement of Left Lens with Synthetic Substitute, Percutaneous Approach (ICD-10-PCS; principal; 2018-12-26 09:00)
DX: H25.812 Combined forms of age-related cataract, left eye (principal); I10 Essential (primary) hypertension; E03.9 Hypothyroidism, unspecified; J45.909 Unspecified asthma, uncomplicated
CPT/HCPCS: 66984; A9270; J3490; J7120; V2632

== ENCOUNTER 2019-01-21 08:56 | Outpatient (CLI) | payer MEDICARE, OTHER ==
--- NOTE | 2019-01-21 15:34 | SLEEP CARE CONSULTATION ---
Information from patient questionnaire entered by Magdalena Chung. I have reviewed and concur with the information entered by Magdalena Chung. This document represents the service I personally performed and the decisions made by me, Kelsea Mcguire MD, [facility]. History of Present Illness Reason for Visit: New patient Chief Complaint: reports: Frequent awakenings at night Duration of Symptoms: 6-7 years Usual bedtime: 6913-5625 Time it takes to fall asleep: 2+ hours Observed to quit breathing while asleep: No Number of times waking at night: 2-3 Reasons for waking at night: reports: Pain, Bathroom, Other (can't sleep) Toss, Turn, or Twitch while sleeping: Yes Recalls having dreams: No Usually gets out of bed at: [id number] Feels refreshed in the morning: Yes (sometimes) Morning headache: Yes (sometimes) Sleepy or fatigued during the day: No Ever fallen asleep while driving: No Takes day naps: No (rarely) Dreams during day naps: No Prior sleep studies: No Additional HPI information: I had the pleasure of seeing Ms. Louis today regarding the possibility of her having a sleep disorder. As you know, she is a 73 year old lady who complains of waking up with a headache. The patient tells me that she normally goes to bed around 10 pm, and it takes her approximately 2 hours to fall asleep. She has not been told that she snores loudly and irregularly at night. She has never been observed to stop breathing in her sleep. She is a and sleeps alone. She can recall waking up on the average of 2 - 3 times during the night. Most of the time she wakes up because of having to use the bathroom. She has awakened occasionally because of her own snoring, choking, and having to gasp for air. There is not a lot of tossing and turning in her sleep. No somniloquy (sleep talking) or somnambulism (sleep walking). Generally there is no recollection of dreams. In the morning she usually gets up out of the bed around 6 a.m. not feeling refreshed nor rested. She usually does not have a morning headache. During the day she does not feel sleepy and fatigued. Her score on [place] Sleepiness Scale is 2 out of 24. She has never fallen asleep while driving nor has had any accident due to sleepiness. She usually does not take naps during the day. She reports occasionally having impaired concentration during the day. Subjective Initial [place] Sleepiness Scale score: 2 Past Medical History Past Medical History: reports: Arthritis, Hypothyroidism, Asthma, GERD, Other (high blood pressure, cholesterol, just had cataract surgery, psoriasis, tonsillectomy) Social History The patient's occupation is retired. Patient is a / and lives in [place]. Have you smoked in the past 12 months: Yes Cigarettes per day (20/pack): 40 Years of smokin Quit date: 09/10/91 Smoking Pack Years: 62.0 Alcohol use: No Caffeine use: Yes Caffeine amount and frequency: 2 cups coffee/morning Family History Family history of sleep disordered breathing: No Allergies and Home Medications Drug allergies reviewed: Yes Home medication list reviewed: Yes Review of Systems Cardiovascular: reports: high blood pressure Respiratory: denies: shortness of breath, wheeze, sputum production, chronic cough, other Gastrointestinal: reports: heartburn, other (constipation) Urinary: reports: frequency Neurological: reports: headaches Psychiatric: denies: Attention Deficit Hyperactivity, anxiety, depression, mood disorder, claustrophobia, other Ear/Nose/Throat: reports: dry mouth/throat, tonsillectomy, wisdom teeth removed Endocrine: reports: thyroid disease Musculoskeletal: reports: joint pain (sometimes), neck pain (sometimes), back pain Immunologic: reports: allergies to food or environment (coconut milk, smoke) Physical Exam Vital signs obtained and entered by: Dr. Mcguire Blood Pressure: 149/88 Cuff size: regular Heart Rate: 68 O2 Saturation: 98 Height: 5 ft 5 in Weight: 148 lb Body Mass Index: 24.6 BMI Classification: Healthy weight Neck circumference: 14 Mood/affect: normal HEENT: No craniofacial malformation Nostrils: patent to airflow Turbinates: normal Septum: midline Mouth and throat: narrow oropharynx Soft palate: long Hard palate: normal Uvula: normal Uvula visualization: 50% Mallampati Class II Tongue: normal in size Tonsils: absent bilaterally Chin and jaw: normal size and position Neck: normal w/o lymphadenopathy or thyromegaly Heart: regular rate and rhythm Lungs: clear bilaterally Abdomen: soft, non-tender Extremities: no edema or clubbing Neurologic: intact, no focal deficits Impression and Plan IMPRESSION: 1. Suspected Obstructive Sleep Apnea-Hypopnea Syndrome, as suggested by history of frequent awakenings during the night, unrefreshed sleep, morning headache, and cognitive impairment. Narrow oropharynx is a common predisposing factors for obstructive sleep apnea-hypopnea syndrome. Pathophysiology of sleep- disordered breathing was discussed. I recommend proceeding to polysomnography t o confirm the diagnosis and to assess severity. I informed the patient of what the sleep studies involve and after some discussion, she agreed to proceed. 2. Insomnia, involving both the sleep onset and sleep maintenance, due to excessive time spent in bed of 10 12 hours each night. The patient was advised to limit time spent in bed to 8 hours like that of normal people. Plan: 1. Schedule polysomnography and return in 1 to 2 weeks after the study to discuss result and initiate therapy. 2. Maintain a regular wake up time and spend no more than 8 hours in bed at night. Avoid naps. I spent 100% of this 20 minute visit face to face with the patient with greater than 50% of this was spent time counseling the patient and coordination of care.
[2019-01-21 15:35] VITALS: BP 149/88
== END 2019-01-21 08:57 | disposition home or self-care (01) ==
LOC: SC 08:56
PROVIDERS: ATTEND Internal Medicine Pulmonary Disease
DX: G47.8 Other sleep disorders (principal); R51 Headache; R41.89 Other symptoms and signs involving cognitive functions and awareness; G47.00 Insomnia, unspecified
CPT/HCPCS: 99203; G0463; 99212

== ENCOUNTER 2019-02-08 20:33 | Outpatient (CLI) | payer MEDICARE, OTHER | END 2019-02-08 20:34 | disposition home or self-care (01) | LOC: SC 20:33 | PROVIDERS: ATTEND Internal Medicine Pulmonary Disease | DX: G47.33 Obstructive sleep apnea (adult) (pediatric) (principal); G47.61 Periodic limb movement disorder | CPT/HCPCS: 95810 ==

== ENCOUNTER 2019-03-13 12:45 | Outpatient (CLI) | payer MEDICARE, OTHER ==
[2019-03-13 13:50] VITALS: BP 140/80
--- NOTE | 2019-03-13 13:50 | SLEEP CARE CONSULTATION ---
Information from patient questionnaire entered by Corrina Lee. I have reviewed and concur with the information entered by Corrina Lee. This document represents the service I personally performed and the decisions made by me, Dawna Ny, RN, MSN, [employer]. History of Present Illness Initial [place] Sleepiness Scale score: 2 Current [place] Sleepiness Scale score: 0 Additional HPI information: REEMA ROCA returns for follow up and results of the recently performed polysomnography. I explained the pathophysiology behind obstructive sleep apnea. We then spent quite a bit of time discussing different treatment options. For mild obstructive sleep apnea, surgery and oral appliance are alternatives to nasal CPAP therapy but in moderate or severe cases, nasal CPAP is the most effective and reliable treatment. I reviewed the impact of weight changes on sleep apnea and strongly recommended losing weight. After some discussion, the patient opted to go with the nasal CPAP therapy. I explained the process of initiation of therapy with a manual titration in lab study to autoCPAP therapy. Since she did not sleep well with the polysomnography, she wanted to try the autoCPAP first. Nasal autoCPAP set at 4- [id number] will be ordered with rationale explained. A manual titration study will be ordered if unable to find optimal pressure with office adjustments. I explained how CPAP machine works with sample devices [employer] Dreamstation and [employer] [id number] and what to expect when using the machine. Using CPAP every night in order to get used to it was emphasized. Patient advised to put CPAP mask on before getting into bed so as not to fall asleep without CPAP. To assist acclimation to CPAP use, it could also be used for a short time during day while reading or watching TV. The patient was instructed to call the CPAP supplier to discuss any mechanical problem that may occur. If the mask given is uncomfortable or is difficult to keep on through the night even with adjustment, contact the CPAP supplier as many will replace with another mask style if notified before 30 days. If snoring or perceives is not getting enough air or too much air from the machine, notify this office. [facility] patient education PAP tips reviewed and given to patient. Patient counseled not drink alcohol less than 4 hours before bedtime as it can increase snoring and apnea. Patient was cautioned about risks of drowsy driving until sleepiness symptoms resolve. Patient denies drowsy driving. [facility] patient education on snoring and sleep apnea given and reviewed. Sleep Study - Results Polysomnography/Home Sleep Study results: The quality of the study is good. The patient had reduced sleep efficiency due to sleep onset insomnia and several prolonged awakenings during the night. Despite moderate sleep fragmentation,, the sleep architecture was relatively normal. Respiratory monitoring showed mild obstructive sleep apnea-hypopnea (AHI = 6.8) associated with frequent arousals, oxyhemoglobin desaturation and mild hypoxia (quang oxygen saturation of 86%). The respiratory events occurred almost exclusively during supine sleep (supine AHI = 14.7; non-supine = 4.75). Snore was light in intensity. There was severe periodic leg movement of sleep contributing to the sleep fragmentation. Cardiac rhythm was normal sinus rhythm without significant arrhythmia. No abnormal behavior (parasomnia) observed during the night. Allergies and Home Medications Known drug allergies: Yes (see list above, states is not allergic to ibuprofen) Home medication list reviewed: Yes (no changes except stopped Zyrtec and Zantac until speaks to PCP) Review of Systems Review of systems same as previous: No (seeing rhuematologist for pain) Physical Exam Blood Pressure: 140/80 Cuff size: long Heart Rate: 68 O2 Saturation: 98 Height: 5 ft 5 in Weight: 156 lb Body Mass Index: 25.9 BMI Classification: Overweight Impression and Plan 1. Obstructive Sleep Apnea-Hypopnea Syndrome, mild, with lowest oxygen saturation of 86%. Obviously this is the cause of the patients symptoms of insomnia. Positive pressure therapy could benefit her hypertension. As mentioned above, the patient will be started on nasal autoCPAP therapy with pressure set at 4-12 cmH2O. A manual titration study will be completed if unable to find optimal treatment pressure with office adjustments. Compliance guideline s also reviewed and clarified with patient. A copy of compliance guidelines will be given for reference at check out. Because the apnea is more severe supine, I instructed to avoid sleeping supine using pillow positioning until able to start CPAP use which she already states she does due to back pain. 2. Periodic limb movement,severe , that did fragment patients sleep. Periodic limb movement of sleep (PLMS) is characterized by episodes of repetitive limb movements that occur during sleep and usually involve the lower limbs. The etiology is unknown but can be associated with restless leg syndrome (RLS), neuropathy, spinal cord diseases, kidney disease, rheumatological disorders, narcolepsy, obstructive sleep apnea, and REM sleep behavior disorder. Other factors that can increase PLMS and/or RLS are heredity and iron deficiency as reflected by a low serum ferritin level below 50 to 75mcg / L. Several medications can precipitate or aggravate PLMS such as selective serotonin re- uptake inhibitor antidepressants, tricyclic antidepressants, lithium, and dopamine receptor antagonists with the exception of bupropion. Caffeine can also aggravate PLMS and should be avoided. Sleep hygiene methods can also improve sleep as well as lifestyle changes such as regular exercise. Patient was advised that further evaluation is indicated and to rule out possible causes noted above. Patient's generalized pain and back pain could be a possible cause in addition to possible iron deficiency. ] * Nasal auto CPAP therapy, pressure at 4-12 cm H2O. * Avoid alcohol consumption near bedtime. * Avoid supine sleep until using CPAP. * The patient is again cautioned about driving until sleepiness completely resolves. -denies drowsy driving. * Follow up with PCP / manager drug * Return one month after CPAP obtained. I will assess response to therapy and compliance at that time. Time Spent with Patient (minutes): 45 I spent 100% of this visit face to face with the patient with greater than 50% of this was spent time counseling the patient and coordination of care. Extra time also taken to answer patient many questions about sleep apnea and treatment options.
== END 2019-03-13 12:46 | disposition home or self-care (01) ==
LOC: SC 12:45
PROVIDERS: ATTEND Nurse Practitioner Family
DX: G47.33 Obstructive sleep apnea (adult) (pediatric) (principal); G47.61 Periodic limb movement disorder
CPT/HCPCS: 99215; G0463; 99212

== ENCOUNTER 2019-05-27 09:33 | Outpatient (CLI) | payer MEDICARE, OTHER ==
--- NOTE | 2019-05-27 16:37 | SLEEP CARE CONSULTATION ---
Information from patient questionnaire entered by Corrina Lee. I have reviewed and concur with the information entered by Corrina Lee. This document represents the service I personally performed and the decisions made by me, Kelsea Mcguire MD, [facility]. History of Present Illness Previous diagnosis: Mild, Obstructive Sleep Apnea-Hypopnea Syndrome AHI: 6.8 Reason for follow up: first compliance Equipment type: CPAP Equipment obtained from: [facility] Mask style: Full face HPI additional information: I had the pleasure of seeing Ms. Hutton today regarding the possibility of her having a sleep disorder. As you know, she is a 61 year old lady who complains of insomnia, sleep study, observed apneas, unrefreshed sleep, unrefreshed sleep, persistent fatigue, and excessive daytime sleepiness. The patient tells me that she normally goes to bed around midnight, and it takes her approximately 30 minutes to fall asleep. She has been told that she snores loudly and irregularly at night. She has also been observed to stop breathing in her sleep. Her bed partner can still sleep in the same bed. He has obstructive sleep apnea-hypopnea and uses a CPAP. She can recall waking up on the average of 2 - 3 times during the night. Most of the time she wakes up because of having to use the bathroom. She has awakened occasionally because of her own snoring, choking, and having to gasp for air. There is not a lot of tossing and turning in her sleep. She has somniloquy (sleep talking) but not somnambulism (sleep walking). Generally she can recall having dreams. In the morning she usually gets up out of the bed around 7:45 a.m. not feeling refreshed nor rested. She occasionally has a morning headache. During the day she complains of feeling sleepy and fatigued. Her score on [place] Sleepiness Scale is 12 out of 24. She has never fallen asleep while driving nor has had any accident due to sleepiness. She usually does not take naps during the day. She reports having impaired concentration during the day. CPAP Compliance Data - Data Reviewed with Patient Average duration of nightly device use: 9.95 Compliance rate %: 100 Current pressure setting (cmH2O): 4-12 Humidity settin Heated hose settin Average residual AHI: 14.7 Average large leak: 7 min 4 sec Subjective Patient concerns: reports: dry mouth, nose, throat Initial [place] Sleepiness Scale score: 2 Current [place] Sleepiness Scale score: 1 Allergies and Home Medications Drug allergies reviewed: Yes (Talwin & Sulfa drugs) Home medication list reviewed: Yes (ibuprofen) Review of Systems Cardiovascular: denies: high blood pressure, palpitations, chest pain, irregular heart rate or pulse, leg or foot swelling, have to sleep sitting up, other Respiratory: denies: shortness of breath, wheeze, sputum production, chronic cough, other Gastrointestinal: denies: heartburn, difficulty swallowing, nausea, vomitting, diarrhea, abdominal pain, other Urinary: denies: incontinence, frequency, urgency, impotence, other Neurological: denies: headaches, seizure, head trauma, disorientation, speech dysfunction, gait or balance problems, fainting or unconsciousness, other Psychiatric: denies: Attention Deficit Hyperactivity, anxiety, depression, mood disorder, claustrophobia, other Ear/Nose/Throat: denies: nasal congestion, sinus problems, nose bleeds, dry mouth/throat, hoarseness, injury to nose, tonsillectomy, wisdom teeth removed, other Endocrine: denies: thyroid disease, history of goiter, sluggishness, too hot or cold, excessive thirst, increased appetite, increased urination, unexplained weakness, other Musculoskeletal: denies: joint pain, neck pain, back pain, joint swelling, muscle pain or cramping, mobility problems, other Immunologic: denies: sneezing, rash, itching, allergies to food or environment, other Physical Exam Vital signs obtained and entered by: Physical exam is deferred due to the COVID- 19 pandemic. Height: 5 ft 5 in Weight: 160 lb Body Mass Index: 26.6 BMI Classification: Overweight Impression and Plan IMPRESSION: 1. Obstructive Sleep Apnea-Hypopnea Syndrome, as suggested by history of loud and irregular snoring, observed cessation of breath while asleep, frequent awakenings, nocturnal choking, unrefreshed sleep, occasional morning headache, cognitive impairment, and daytime hypersomnolence. Narrow oropharynx and obesity are common predisposing factors for obstructive sleep apnea-hypopnea syndrome. Pathophysiology of sleep-disordered breathing was discussed. I recommend proceeding to polysomnography to confirm the diagnosis and to assess severity. If she has significant sleep disordered breathing, a manual CPAP titration study will also be performed to find the optimal treatment pressure. I informed the patient of what the sleep studies involve and after some discussion, she agreed to proceed. Plan: 1. Schedule an in-laboratory polysomnography or a home sleep apnea test (HSAT). 2. Avoid long distance driving or when feeling sleepy. 3. Avoid alcohol, sedative and muscle relaxant around bedtime. 4. Attempt to lose weight. 5. Return in 1 to 2 weeks after the study to discuss results and initiate therapy. I spent 100% of this visit face to face with the patient with greater than 50% of this was spent time counseling the patient and coordination of care.
== END 2019-05-27 09:34 | disposition home or self-care (01) ==
LOC: SC 09:33
PROVIDERS: ATTEND Internal Medicine Pulmonary Disease
DX: G47.33 Obstructive sleep apnea (adult) (pediatric) (principal)
CPT/HCPCS: 99213; G0463; 99212

== ENCOUNTER 2019-12-16 08:49 | Outpatient (CLI) | payer MEDICARE, OTHER ==
--- NOTE | 2019-12-17 09:56 | Mammography Report ---
BILATERAL DIGITAL SCREENING MAMMOGRAM 3D/2D: 12/16/2019 CLINICAL: Routine screening. Comparison is made to exams dated: 08/14/2018 mammogram, 08/08/2017 mammogram, 07/28/2016 mammogram, and 07/28/2015 mammogram - [facility]. There are scattered fibroglandular elements in both breasts. No significant masses, calcifications, or other findings are seen in either breast. There has been no significant interval change. IMPRESSION: NEGATIVE There is no mammographic evidence of malignancy. A 1 year screening mammogram is recommended. This exam was interpreted at Station ID: [id number]. NOTE: For mammograms, a report in lay terms will be sent to the patient. Approximately 15% of breast malignancies will not be visualized mammographically. In the management of a palpable breast mass, a negative mammogram must not discourage biopsy of a clinically suspicious lesion. Electronically Signed By: Dillan Savage M.D. slc/penrad:12/16/2019 10:58:43 ACR BI-RADS Category 1: Negative 3341F PARENCHYMAL PATTERN: (A) - The breast(s) demonstrate(s) scattered fibroglandular densities. BI-RADS CATEGORY: (1) - 1 RECOMMENDATION: (ANNUAL) - Recommend routine annual screening mammography. [id number] 1 year screening LATERALITY: (B)
== END 2019-12-16 08:50 | disposition home or self-care (01) ==
LOC: DI.N 08:49
DX: Z12.31 Encounter for screening mammogram for malignant neoplasm of breast (principal)
CPT/HCPCS: 77063; 77067

== ENCOUNTER 2019-12-23 14:04 | Outpatient (CLI) | payer MEDICARE, OTHER ==
--- NOTE | 2019-12-23 15:00 | SLEEP CARE CONSULTATION ---
Information from patient questionnaire entered by Corrina Lee. I have reviewed and concur with the information entered by Corrina Lee. This document represents the service I personally performed and the decisions made by me, Kelsea Mcguire MD, [facility]. History of Present Illness Service Date and Time: 12/23/2019 1404 Previous diagnosis: Mild, Obstructive Sleep Apnea-Hypopnea Syndrome AHI: 6.8 (in 2019) Reason for follow up: other (7 month, dry mouth) Equipment type: CPAP Equipment obtained from: [employer] Mask style: Full face Prior sleep studies: Yes Year and Where: 2019 - [facility] Type of Sleep Study: Polysomnography HPI additional information: HPI: Ms. Louis returned today for follow up of nasal CPAP therapy. She was diagnosed to have mild obstructive sleep apnea-hypopnea syndrome. The patient wears with a [employer] DreamWear nasal cushion mask. Her equipment comes from [employer]. She reports using the device nightly and all through the night the past 3 months. The compliance data show usage in 87 out of the past 90 nights, averaging 9 hours a night. The > 4 hour compliance rate for the past 90 days is 96.7%. She complained of dryness and the tube feeling too warm. No particular problem with the device such as soreness on the face, epistaxis, nasal congestion or headache. She thinks that the pressure of 4 12 cmH2O is comfortable. On the CPAP therapy she notices improvement in her sleep quality, and that she wakes up feeling fresher in the morning and more awake/alert during the day. The Kirk Sleepiness Scale score 1. The average residual AHI is 16.4 (was 14.7); and average time in large leak per day is 22 minutes. The 90th percentile pressure is 11.5 cmH2O. Sleep Study - Results Prior sleep studies: No CPAP Compliance Data - Data Reviewed with Patient Average duration of nightly device use: 9 Compliance rate %: 94.4 (90 days) Current pressure setting (cmH2O): 4-12 Humidity settin Heated hose settin Average residual AHI: 16.4 Average large leak: 22 min 3 sec Subjective Patient concerns: reports: mask discomfort, dry mouth, nose, throat, other (Headaches, occasionally) Initial Kirk Sleepiness Scale score: 2 (in 2019) Current Kirk Sleepiness Scale score: 1 Allergies and Home Medications Drug allergies reviewed: Yes Home medication list reviewed: Yes Review of Systems Review of systems same as previous: Yes Physical Exam Vital signs obtained and entered by: To minimize the risk of COVID-19 exposure, detailed exam was not performed. Height: 5 ft 5 in Weight: 150 lb Body Mass Index: 25.0 BMI Classification: Overweight Impression and Plan 1. Obstructive Sleep Apnea-Hypopnea Syndrome, mild, with the patient doing well on nasal CPAP therapy. She has excellent compliance and significant clinical improvement. The current pressure appears ineffective but comfortable. Because her sleep-disordered breathing is mild and she does not sleep on her back at home anyway, I suggested she use the CPAP on as needed basis, e.g. when she has headaches. A manual CPAP/BiPAP titration study will be considered if she decides to use her CPAP regularly. PLAN: 1. Continue with autoCPAP set at 4 - 12 cmH2O. She may use the CPAP on as needed basis. 2. Return in one year for follow up or earlier if there is any problem with the treatment. Visit Type: In Office Time Spent with Patient (minutes): 15 Provider Statement: I spent 100% of the Face to Face Visit with the patient with greater than 50% spent counseling the patient and coordination of care.
== END 2019-12-23 14:05 | disposition home or self-care (01) ==
LOC: SC 14:04
PROVIDERS: ATTEND Internal Medicine Pulmonary Disease
DX: G47.33 Obstructive sleep apnea (adult) (pediatric) (principal)
CPT/HCPCS: 99213; G0463; 99212

== ENCOUNTER 2020-02-06 08:00 | Outpatient (CLI) | payer MEDICARE, OTHER ==
[2020-02-06 13:02] LABS: BASOPHILS # (AUTO) 0.1 10^3/uL (0.0-0.1); BASOPHILS % (AUTO) 1.2 %; EOSINOPHILS # (AUTO) 0.2 10^3/uL (0.0-0.7); EOSINOPHILS % (AUTO) 3.5 %; HGB - HEMOGLOBIN 14.3 g/dL (12.0-16.0); LYMPHOCYTES # (AUTO) 1.6 10^3/uL (1.5-3.5); LYMPHOCYTES % (AUTO) 28.5 %; MEAN CORPUSCULAR HEMOGLOBIN 31.2 pg (27.0-31.0); MEAN CORPUSCULAR VOLUME 91.7 fL (81.0-99.0); MEAN PLATELET VOLUME 10.2 fL (7.9-10.8); MONOCYTES # (AUTO) 0.7 10^3/uL (0.0-1.0); MONOCYTES % (AUTO) 12.7 %; NEUTROPHILS % (AUTO) 53.9 %; PLT - PLATELET COUNT 235 10^3/uL (130-450); RED BLOOD COUNT 4.58 10^6/uL (4.20-5.40); RED CELL DISTRIBUTION WIDTH 13.4 % (12.0-15.0); WHITE BLOOD COUNT 5.7 x10^3/uL (4.8-10.8)
[2020-02-06 13:23] LABS: ALBUMIN/GLOBULIN RATIO 1.3 (1.0-2.2); ALKALINE PHOSPHATASE 42 IU/L (42-121); ALT ALANINE AMINOTRANSFERASE 21 IU/L (10-60); AST ASPARTATE AMINOTRANSFERASE 23 IU/L (10-42); BILIRUBIN,TOTAL 0.4 mg/dL (0.2-1.0); BUN - BLOOD UREA NITROGEN 18 mg/dL (6-20); CALCIUM 9.4 mg/dL (8.5-10.3); CARBON DIOXIDE - CO2 30 mmol/L (21-32); CHLORIDE 106 mmol/L (101-111); CHOL/HDL RATIO 3.2 (<4.4); CHOLESTEROL 183 mg/dL; GLUCOSE 92 mg/dL (70-100); HDL CHOLESTEROL 57 mg/dL; LDL CHOLESTEROL,CALCULATED 94 mg/dL; LDL/HDL RATIO 1.6 (<4.4); SODIUM 140 mmol/L (135-145); VLDL CHOLESTEROL 32 mg/dL
[2020-02-06 13:25] LABS: CRP - C-REACTIVE PROTEIN < 1.0 mg/dL (0-1.0)
[2020-02-06 14:35] LABS: FREE T4 (FREE THYROXINE) 0.78 ng/dL (0.58-1.64)
== END 2020-02-06 23:59 | disposition home or self-care (01) ==
LOC: LAB.WCP 08:00
PROVIDERS: ATTEND Family Medicine
DX: I10 Essential (primary) hypertension (principal); E03.9 Hypothyroidism, unspecified; R79.89 Other specified abnormal findings of blood chemistry
CPT/HCPCS: 36415; 80053; 80061; 83721; 84439; 84443; 85025; 85651; 86140

== ENCOUNTER 2020-02-11 13:47 | Outpatient (CLI) | payer MEDICARE, OTHER ==
--- NOTE | 2020-02-11 14:40 | XRAY Report ---
PROCEDURE: Shoulder 2 View LT INDICATIONS: LEFT SHOULDER PAIN TECHNIQUE: 2 views of the shoulder were acquired. COMPARISON: None. FINDINGS: Bones: No acute fractures or dislocations. No suspicious bony lesions. Visualized ribs appear inta ct. Mild degenerative changes are seen at the acromioclavicular joint and the glenohumeral joint. Soft tissues: No suspicious soft tissue calcifications. Calcified mediastinal or hilar lymph nodes are partially imaged. IMPRESSION: No acute osseous abnormality. Mild glenohumeral and acromioclavicular osteoarthrosis. If the symptoms persist, further evaluation with MRI may be obtained Reviewed by: Brock Doyle MD on 02/11/2020 1:39 PM [facility] Approved by: Brock Doyle MD on 02/11/2020 1:39 PM [facility] Station ID: [id number]
== END 2020-02-11 23:59 | disposition home or self-care (01) ==
LOC: DI.WCP 13:47
PROVIDERS: ATTEND Family Medicine
DX: M19.012 Primary osteoarthritis, left shoulder (principal)

== ENCOUNTER 2020-03-18 08:00 | Outpatient (CLI) | payer MEDICARE, OTHER ==
--- NOTE | 2020-03-18 09:21 | XRAY Report ---
PROCEDURE: Hips 2V BILAT INDICATIONS: ARTHRITIS IN R AND L HIP TECHNIQUE: AP pelvis and lateral views of each hip. COMPARISON: Pelvis and hip radiographs 01/07/2018. CT abdomen and pelvis 02/16/2017. FINDINGS: Bones: No fractures or dislocations. Bilateral nearly symmetric moderate to severe joint space narro wing. Acetabular roof sclerosis. Prominent osteophytes at the left femoral neck. Findings may be slig htly progressed compared to 2018. No suspicious bony lesions. The visualized pelvic ring appears int act. Soft tissues: No suspicious soft tissue calcifications or masses. IMPRESSION: Moderate bilateral hip DJD. This may be slightly worse on the left. This may be slightly progressed compared to 2018. Reviewed by: Dillan Savage MD on 03/18/2020 8:20 AM [facility] Approved by: Dillan Savage MD on 03/18/2020 8:20 AM [facility] Station ID: [id number]
== END 2020-03-18 23:59 | disposition home or self-care (01) ==
LOC: DI.N 08:00
PROVIDERS: ATTEND Orthopaedic Surgery
DX: M16.0 Bilateral primary osteoarthritis of hip (principal)

== ENCOUNTER 2020-05-24 13:44 | Outpatient (CLI) | payer MEDICARE, OTHER ==
--- NOTE | 2020-05-24 14:13 | SLEEP CARE CONSULTATION ---
Information from patient questionnaire entered by Sophie Domínguez. I have reviewed and concur with the information entered by Sophie Domínguez. This document represents the service I personally performed and the decisions made by me, Kelsea Mcguire MD, [facility]. History of Present Illness Service Date and Time: 05/24/2020 1344 Previous diagnosis: Mild, Obstructive Sleep Apnea-Hypopnea Syndrome AHI: 6.8 (in 2019) Reason for follow up: other (5-month followup - trouble sleeping) Equipment type: CPAP Equipment obtained from: [employer] Mask style: Nasal pillows Prior sleep studies: No Year and Where: 2019 - [facility] Type of Sleep Study: Polysomnography HPI additional information: HPI: Ms. Louis returned today for follow up of nasal CPAP therapy. She was diagnosed to have mild obstructive sleep apnea-hypopnea syndrome. The patient went to [employer] for the equipment and was fitted with a nasal mask. She reports using the device nightly and all through the night. The compliance report shows usage in 82 nights out of the past 90 nights, averaging 8.5 hours a night. The > 4 hour compliance rate for the past 30 days is 89%. She complained of the machine being noisy and causing insomnia. No particular problem with the device such as soreness on the face, dry nose, epistaxis, nasal congestion or headache. She thinks that the pressure of 4 - 12 cmH2O is comfortable. The [place] Sleepiness Scale score 0. Her notices no snore at all. The average residual AHI is 14.1 (mostly hypopneas); and average time in large leak per day is 2 minutes. The 90th percentile pressure is 10.7 cmH2O. CPAP Compliance Data - Data Reviewed with Patient Average duration of nightly device use: 8 h 27 min Compliance rate %: 88.9 Current pressure setting (cmH2O): 4-12 Humidity settin Heated hose settin Average residual AHI: 14.1 Average large leak: 2 min 20 sec Subjective Missed days of use due to: reports: mask issues Patient concerns: reports: mask discomfort Current pressure setting perceived as: comfortable On therapy, patient: reports: other (Don't sleep much) Initial [place] Sleepiness Scale score: 2 (in 2019) Current [place] Sleepiness Scale score: 0 Allergies and Home Medications Drug allergies reviewed: Yes Home medication list reviewed: Yes Review of Systems Review of systems same as previous: Yes Physical Exam Height: 5 ft 5 in Weight: 155 lb Weight change since last visit: +7 Body Mass Index: 25.7 BMI Classification: Overweight Impression and Plan IMPRESSION: 1. Obstructive Sleep Apnea-Hypopnea Syndrome, mild with the patient not wanting to use the CPAP. She has good compliance but unclear improvement. Because she sleeps better without the CPAP and her sleep-disordered breathing is very mild, I advised her that she may use the CPAP on as needed basis. PLAN: 1. Use CPAP as needed. 2. Try to lose weight 3. Return in one year for follow up if she decides to keep using the CPAP. Visit Type: In Office Time Spent with Patient (minutes): 15 Provider Statement: I spent 100% of the Face to Face Visit with the patient with greater than 50% spent counseling the patient and coordination of care.
== END 2020-05-24 13:45 | disposition home or self-care (01) ==
LOC: SC 13:44
PROVIDERS: ATTEND Internal Medicine Pulmonary Disease
DX: G47.33 Obstructive sleep apnea (adult) (pediatric) (principal); E66.3 Overweight; Z68.25 Body mass index [BMI] 25.0-25.9, adult
CPT/HCPCS: 99212; G0463

== ENCOUNTER 2020-10-28 08:00 | Outpatient (CLI) | payer MEDICARE, OTHER ==
[2020-10-28 11:42] LABS: BASOPHILS # (AUTO) 0.1 10^3/uL (0.0-0.1); BASOPHILS % (AUTO) 1.3 %; EOSINOPHILS # (AUTO) 0.2 10^3/uL (0.0-0.7); EOSINOPHILS % (AUTO) 2.9 %; HCT - HEMATOCRIT 45.3 % (37.0-47.0); HGB - HEMOGLOBIN 14.8 g/dL (12.0-16.0); LYMPHOCYTES % (AUTO) 29.1 %; MEAN CORPUSCULAR HEMOGLOBIN 29.8 pg (27.0-31.0); MEAN CORPUSCULAR HGB CONC 32.7 g/dL (32.0-36.0); MEAN CORPUSCULAR VOLUME 91.3 fL (81.0-99.0); MEAN PLATELET VOLUME 10.2 fL (7.9-10.8); MONOCYTES # (AUTO) 0.7 10^3/uL (0.0-1.0); MONOCYTES % (AUTO) 10.6 %; NEUTROPHILS # (AUTO) 3.9 10^3/uL (1.5-6.6); NEUTROPHILS % (AUTO) 55.8 %; PLT - PLATELET COUNT 254 10^3/uL (130-450); RED BLOOD COUNT 4.96 10^6/uL (4.20-5.40); RED CELL DISTRIBUTION WIDTH 13.4 % (12.0-15.0); WHITE BLOOD COUNT 6.9 x10^3/uL (4.8-10.8)
[2020-10-28 12:29] LABS: ALBUMIN 4.6 g/dL (3.2-5.5); ALBUMIN/GLOBULIN RATIO 1.6 (1.0-2.2); ALKALINE PHOSPHATASE 41 IU/L (42-121); ALT ALANINE AMINOTRANSFERASE 19 IU/L (10-60); AST ASPARTATE AMINOTRANSFERASE 22 IU/L (10-42); BILIRUBIN,TOTAL 0.7 mg/dL (0.2-1.0); BUN - BLOOD UREA NITROGEN 27 mg/dL (6-20); CALCIUM 10.1 mg/dL (8.5-10.3); CARBON DIOXIDE - CO2 29 mmol/L (21-32); CHLORIDE 104 mmol/L (101-111); CHOLESTEROL 181 mg/dL; CREATININE 1.1 mg/dL (0.4-1.0); GFR - MDRD 48 (>89); GLUCOSE 95 mg/dL (70-100); HDL CHOLESTEROL 61 mg/dL; LDL CHOLESTEROL,CALCULATED 96 mg/dL; LDL/HDL RATIO 1.6 (<4.4); POTASSIUM 4.2 mmol/L (3.5-5.0); SODIUM 143 mmol/L (135-145); TOTAL PROTEIN 7.5 g/dL (6.7-8.2); TRIGLYCERIDES 121 mg/dL; VLDL CHOLESTEROL 24 mg/dL
[2020-10-28 12:33] LABS: THYROID STIMULATING HORMONE 4.38 uIU/mL (0.34-5.60)
[2020-10-28 12:34] LABS: FREE T3 2.75 pg/mL (2.5-3.9)
[2020-10-28 12:35] LABS: FREE T4 (FREE THYROXINE) 0.94 ng/dL (0.58-1.64)
== END 2020-10-28 23:59 | disposition home or self-care (01) ==
LOC: LAB.WCP 08:00
PROVIDERS: ATTEND Family Medicine
DX: E78.5 Hyperlipidemia, unspecified (principal); M89.9 Disorder of bone, unspecified; E03.9 Hypothyroidism, unspecified
CPT/HCPCS: 36415; 80053; 80061; 83721; 84439; 84443; 84481; 85025

== ENCOUNTER 2021-01-27 12:27 | Outpatient (CLI) | payer MEDICARE, OTHER ==
--- NOTE | 2021-01-28 07:53 | Mammography Report ---
BILATERAL DIGITAL SCREENING MAMMOGRAM 3D/2D: 01/27/2021 CLINICAL: Routine screening. Comparison is made to exams dated: 12/16/2019 mammogram, 08/14/2018 mammogram, 08/08/2017 mammogram, 07/10 mammogram, and 07/28/2015 mammogram - [facility]. There are scattered fibrog landular elements in both breasts. No significant masses, calcifications, or other findings are seen in either breast. There has been no significant interval change. IMPRESSION: NEGATIVE There is no mammographic evidence of malignancy. A 1 year screening mammogram is recommended. This exam was interpreted at Station ID: [id number]. NOTE: For mammograms, a report in lay terms will be sent to the patient. Approximately 15% of breast malignancies will not be visualized mammographically. In the management of a palpable breast mass, a negative mammogram must not discourage biopsy of a clinically suspicious lesion. Electronically Signed By: Zach Mchugh M.D. [email or web address]/[email or web address]:01/27/2021 13:28:55 ACR BI-RADS Category 1: Negative 3341F PARENCHYMAL PATTERN: (A) - The breast(s) demonstrate(s) scattered fibroglandular densities. BI-RADS CATEGORY: (1) - 1 RECOMMENDATION: (ANNUAL) - Recommend routine annual screening mammography. [id number] 1 year screening LATERALITY: (B)
== END 2021-01-27 12:28 | disposition home or self-care (01) ==
LOC: DI.N 12:27
DX: Z12.31 Encounter for screening mammogram for malignant neoplasm of breast (principal)

== ENCOUNTER 2021-07-07 09:05 | Outpatient (CLI) | payer MEDICARE, OTHER ==
[2021-07-07 11:48] LABS: BASOPHILS # (AUTO) 0.1 10^3/uL (0.0-0.1); BASOPHILS % (AUTO) 1.3 %; EOSINOPHILS # (AUTO) 0.2 10^3/uL (0.0-0.7); EOSINOPHILS % (AUTO) 2.8 %; HCT - HEMATOCRIT 42.2 % (37.0-47.0); HGB - HEMOGLOBIN 14.3 g/dL (12.0-16.0); LYMPHOCYTES # (AUTO) 1.5 10^3/uL (1.5-3.5); MEAN CORPUSCULAR HEMOGLOBIN 30.4 pg (27.0-31.0); MEAN CORPUSCULAR HGB CONC 33.9 g/dL (32.0-36.0); MEAN CORPUSCULAR VOLUME 89.8 fL (81.0-99.0); MEAN PLATELET VOLUME 10.1 fL (7.9-10.8); MONOCYTES # (AUTO) 0.7 10^3/uL (0.0-1.0); MONOCYTES % (AUTO) 11.5 %; NEUTROPHILS # (AUTO) 3.6 10^3/uL (1.5-6.6); NEUTROPHILS % (AUTO) 59.2 %; PLT - PLATELET COUNT 235 10^3/uL (130-450); RED CELL DISTRIBUTION WIDTH 13.1 % (12.0-15.0); WHITE BLOOD COUNT 6.1 x10^3/uL (4.8-10.8)
[2021-07-07 12:19] LABS: ALBUMIN 4.3 g/dL (3.2-5.5); ALBUMIN/GLOBULIN RATIO 1.5 (1.0-2.2); ALKALINE PHOSPHATASE 41 IU/L (42-121); ALT ALANINE AMINOTRANSFERASE 18 IU/L (10-60); AST ASPARTATE AMINOTRANSFERASE 21 IU/L (10-42); BILIRUBIN,TOTAL 0.8 mg/dL (0.2-1.0); BUN - BLOOD UREA NITROGEN 19 mg/dL (6-20); CALCIUM 9.6 mg/dL (8.5-10.3); CARBON DIOXIDE - CO2 28 mmol/L (21-32); CHLORIDE 103 mmol/L (101-111); CHOLESTEROL 175 mg/dL; CREATININE 0.9 mg/dL (0.4-1.0); GFR - MDRD 61 (>89); GLUCOSE 92 mg/dL (70-100); HDL CHOLESTEROL 58 mg/dL; LDL CHOLESTEROL,CALCULATED 94 mg/dL; LDL/HDL RATIO 1.6 (<4.4); POTASSIUM 4.2 mmol/L (3.5-5.0); SODIUM 140 mmol/L (135-145); TOTAL PROTEIN 7.1 g/dL (6.7-8.2); TRIGLYCERIDES 113 mg/dL; VLDL CHOLESTEROL 23 mg/dL
[2021-07-07 12:21] LABS: THYROID STIMULATING HORMONE 2.03 uIU/mL (0.34-5.60)
== END 2021-07-07 09:06 | disposition home or self-care (01) ==
LOC: LAB.N 09:05
PROVIDERS: ATTEND Family Medicine
DX: E78.5 Hyperlipidemia, unspecified (principal); E03.9 Hypothyroidism, unspecified; N28.9 Disorder of kidney and ureter, unspecified
CPT/HCPCS: 36415; 80053; 80061; 83721; 84443; 85025

== ENCOUNTER 2021-09-19 08:11 | Outpatient (CLI) | payer MEDICARE, OTHER ==
--- NOTE | 2021-09-19 18:41 | DEXA Report ---
PROCEDURE: Dexa Spine and/or Hip INDICATIONS: POST MENOPAUSAL TECHNIQUE: Dual energy x-ray absorptiometry (DXA) was performed on a An[employer]eple System. Regions measur ed are the AP Spine, femoral neck, and if needed forearm. COMPARISON: 03/07/2018 FINDINGS: Lumbar Spine: Bone Mineral Density 1.357 g/cm/cm,T score 1.5, normal bone density Left Hip: Bone Mineral Density 0.809 g/cm/cm,T score -1.6, osteopenia Left Femoral Neck: Bone Mineral Density 0.917 g/cm/cm, T score -0.9, normal bone density (T score greater or equal to -1.0: NORMAL) (T score from -1.1 to -2.4: OSTEOPENIA) (T score less than or equal to -2.5 to: OSTEOPOROSIS) Impression: Mild osteopenia. Patient is at increased risk for fracture. Patients with diagnosis of osteoporosis or osteopenia should have regular bone mineral density assess ment. For those eligible for Medicare, routine testing is allowed once every 2 years. Testing frequ ency can be increased for patients who have rapidly progressing disease or for those who are receivin g medical therapy to restore bone mass. Reviewed by: Zach Mchugh MD on 09/19/2021 6:40 PM PDT Approved by: Zach Mchugh MD on 09/19/2021 6:40 PM PDT Station ID: [id number]
== END 2021-09-19 08:12 | disposition home or self-care (01) ==
LOC: DI 08:11
PROVIDERS: ATTEND Physician Assistant
DX: M85.88 Other specified disorders of bone density and structure, other site (principal); Z78.0 Asymptomatic menopausal state

== ENCOUNTER 2022-03-23 08:29 | Day surgery (SDC) | payer MEDICARE, OTHER ==
[2022-03-23] MEDS ORDERED: LACTATED RINGERS 1,000 ML IV ONE (09:10)
--- NOTE | 2022-03-23 09:50 | ANESTHESIA ---
Pre-Anesthesia VS, & Labs - Diagnosis screening - Procedure colonoscopy Vital Signs: Temp Pulse Resp BP Pulse Ox O2 Flow Rate 36.2 C L 82 17 151/88 H 98 03/23/22 08:46 03/23/22 08:46 03/23/22 08:46 03/23/22 08:46 03/23/22 08:46 Height: 5 ft 5 in Weight (kg): 68.6 kg Body Mass Index: 25.1 BMI Classification: Overweight - NPO >8 hours - Is Patient ?: No Home Medications and Allergies Benazepril/Hydrochlorothiazide [Benazepril-Hctz 20-12.5 mg Tab] 20 mg PO DAILY 09/24/14 Calcium Carbonate [Calcium] 500 mg PO DAILY 09/24/14 Cetirizine HCl [All Day Allergy] 10 mg PO DAILY 09/24/14 Levothyroxine Sodium 75 mcg PO DAILY 09/24/14 Multivitamin/Iron/Folic Acid [Eq Complete Multivitamin Tab] 1 tab PO DAILY 09/24/14 Simvastatin 40 mg PO DAILY 09/24/14 Vit E Acet/Vit K/Safflower Oil [Vitamin E Oil-Vitamin K] 400 mg PO DAILY 09/24/14 Acyclovir 500 mg ORAL DAILY 06/08/15 raNITIdine [Zantac] 150 mg PO BID 02/13/18 Allergies/Adverse Reactions: Allergies Allergy/AdvReac Type Severity Reaction Status Date / Time ibuprofen [From Motrin] Allergy Severe Anaphylaxis Verified 02/16/17 12:09 nifedipine [From Adalat] Allergy Severe Edema Verified 02/16/17 12:09 codeine AdvReac Intermediate Emesis Verified 02/16/17 12:09 Anes History & Medical History - Anesthetic History Anesthesia Complications: reports: No previous complications Family history of Anesthesia Complications: Denies Family history of Malignant Hyperthermia: Denies - Medical History Cardiovascular: reports: Hypertension, High cholesterol Pulmonary: reports: Asthma Gastrointestinal: reports: GERD, Chronic constipation Urinary: reports: None Neuro: reports: None, Migraines Musculoskeletal: reports: Osteoarthritis, Osteopenia Endocrine/Autoimmune: reports: HyPOthyroidism Blood Disorders: reports: None Skin: reports: Psoriasis Smoking Status: Never smoker - Surgical History General: reports: Appendectomy Eyes Ears Nose Throat (EENT): reports: Tonsil/Adenoidectomy Gynecologic: reports: Hysterectomy Exam General: Alert, Oriented x3, Cooperative, No acute distress Dental: WNL Mouth Openin Fingerbreadth Neck Mobility: Normal Mallampati classification: II Thyromental Distance: 4-6 cm Respiratory: Lungs clear Cardiovascular: Regular rate Plan Anesthesia Type: Total IV Consent for Procedure(s) Verified and Reviewed: Yes Code Status: Attempt Resuscitation ASA classification: 2-Mild systemic disease Is this case an emergency?: No
[2022-03-23] MEDS ORDERED: PROPOFOL 500 MG/50 ML 500 MG/50 ML VIAL ONE (09:57)
[2022-03-23] MEDS ORDERED: SIMETHICONE 40 MG/0.6 ML 30 ML BOTTLE ONE (10:24)
[2022-03-23] MEDS ORDERED: SIMETHICONE 40 MG/0.6 ML 30 ML BOTTLE PO ONE (10:36)
[2022-03-23] MEDS ORDERED: LACTATED RINGERS 400 ML IV ONE (10:42)
[2022-03-23 11:28] VITALS: BP 124/58
--- NOTE | 2022-03-23 12:21 | ANESTHESIA POST OP EVALUATION ---
Anesthesia Post Eval - Post Anesthesia Eval Vitals: Last Vital Signs Temp 36.6 C 03/23/22 11:25 Pulse 62 03/23/22 11:25 Resp 16 03/23/22 11:25 BP 124/58 L 03/23/22 11:25 Pulse Ox 99 03/23/22 11:25 O2 Flow Rate CV Function Including HR & BP: Stable Pain Control: Satisfactory Nausea & Vomiting: Negative Mental Status: Baseline Respiratory Status: Airway Patent Hydration Status: Satisfactory Anesthesia Complications: None
== END 2022-03-23 08:30 | disposition home or self-care (01) ==
LOC: SDS 08:29
PROVIDERS: ATTEND Surgery
PROC: 0DBL8ZZ Excision of Transverse Colon, Via Natural or Artificial Opening Endoscopic (ICD-10-PCS; 2022-03-23)
PROC: 0DBH8ZZ Excision of Cecum, Via Natural or Artificial Opening Endoscopic (ICD-10-PCS; principal; 2022-03-23 09:30)
DX: Z12.11 Encounter for screening for malignant neoplasm of colon (principal); D12.0 Benign neoplasm of cecum; K63.5 Polyp of colon; K57.30 Diverticulosis of large intestine without perforation or abscess without bleeding; J45.909 Unspecified asthma, uncomplicated
CPT/HCPCS: 45380; 45385; A9270; J7120

== ENCOUNTER 2022-06-01 12:14 | Outpatient (CLI) | payer MEDICARE, OTHER ==
[2022-06-01 17:41] LABS: BASOPHILS # (AUTO) 0.1 10^3/uL (0.0-0.1); BASOPHILS % (AUTO) 1.4 %; EOSINOPHILS # (AUTO) 0.1 10^3/uL (0.0-0.7); EOSINOPHILS % (AUTO) 1.8 %; HCT - HEMATOCRIT 46.9 % (37.0-47.0); HGB - HEMOGLOBIN 15.3 g/dL (12.0-16.0); MEAN CORPUSCULAR HEMOGLOBIN 29.5 pg (27.0-31.0); MEAN CORPUSCULAR HGB CONC 32.6 g/dL (32.0-36.0); MEAN CORPUSCULAR VOLUME 90.5 fL (81.0-99.0); MEAN PLATELET VOLUME 10.4 fL (7.9-10.8); MONOCYTES # (AUTO) 0.8 10^3/uL (0.0-1.0); MONOCYTES % (AUTO) 10.8 %; NEUTROPHILS # (AUTO) 4.6 10^3/uL (1.5-6.6); NEUTROPHILS % (AUTO) 59.9 %; PLT - PLATELET COUNT 289 10^3/uL (130-450); RED BLOOD COUNT 5.18 10^6/uL (4.20-5.40); RED CELL DISTRIBUTION WIDTH 13.2 % (12.0-15.0); WHITE BLOOD COUNT 7.7 x10^3/uL (4.8-10.8)
[2022-06-01 17:59] LABS: ALBUMIN 4.5 g/dL (3.2-5.5); ALBUMIN/GLOBULIN RATIO 1.4 (1.0-2.2); ALKALINE PHOSPHATASE 56 IU/L (42-121); ALT ALANINE AMINOTRANSFERASE 19 IU/L (10-60); AST ASPARTATE AMINOTRANSFERASE 24 IU/L (10-42); BILIRUBIN,TOTAL 0.7 mg/dL (0.2-1.0); BUN - BLOOD UREA NITROGEN 23 mg/dL (6-20); CALCIUM 9.9 mg/dL (8.5-10.3); CARBON DIOXIDE - CO2 29 mmol/L (21-32); CHLORIDE 104 mmol/L (101-111); CHOL/HDL RATIO 2.4 (<4.4); CHOLESTEROL 155 mg/dL; GFR - MDRD 53 (>89); GLUCOSE 94 mg/dL (70-100); HDL CHOLESTEROL 64 mg/dL; LDL CHOLESTEROL,CALCULATED 65 mg/dL; POTASSIUM 4.5 mmol/L (3.5-5.0); SODIUM 140 mmol/L (135-145); TOTAL PROTEIN 7.7 g/dL (6.7-8.2); TRIGLYCERIDES 130 mg/dL; VLDL CHOLESTEROL 26 mg/dL
[2022-06-01 18:05] LABS: THYROID STIMULATING HORMONE 2.41 uIU/mL (0.34-5.60)
[2022-06-01 18:07] LABS: FREE T4 (FREE THYROXINE) 1.05 ng/dL (0.58-1.64)
== END 2022-06-01 12:15 | disposition home or self-care (01) ==
LOC: LAB.N 12:14
PROVIDERS: ATTEND Physician Assistant
DX: I10 Essential (primary) hypertension (principal); E78.5 Hyperlipidemia, unspecified; E03.9 Hypothyroidism, unspecified
CPT/HCPCS: 36415; 80053; 80061; 83721; 84439; 84443; 85025

== ENCOUNTER 2022-06-05 09:14 | Outpatient (CLI) | payer MEDICARE, OTHER ==
--- NOTE | 2022-06-05 13:45 | XRAY Report ---
PROCEDURE: Hips 2V BILAT INDICATIONS: ARTHRITIS, L HIP, R HIP TECHNIQUE: 2 views of the hips were acquired. COMPARISON: None FINDINGS: Bones: No fractures or dislocations. No suspicious bony lesions. The visualized pelvic ring appear s intact. Nonuniform joint space narrowing with associated prominent osteophytosis, subchondral scle rosis. Soft tissues: No suspicious soft tissue calcifications or masses. IMPRESSION: Marked bilateral hip osteoarthritis. Reviewed by: Duane Kennedy on 06/05/2022 9:49 AM PDT Approved by: Duane Kennedy on 06/05/2022 9:49 AM PDT Station ID: [id number]
== END 2022-06-05 09:15 | disposition home or self-care (01) ==
LOC: DI 09:14
PROVIDERS: ATTEND Physician Assistant
DX: M16.0 Bilateral primary osteoarthritis of hip (principal)

== ENCOUNTER 2023-04-18 09:23 | Outpatient (CLI) | payer MEDICARE, OTHER ==
[2023-04-18 12:17] LABS: BASOPHILS # (AUTO) 0.1 10^3/uL (0.0-0.1); BASOPHILS % (AUTO) 1.4 %; EOSINOPHILS # (AUTO) 0.2 10^3/uL (0.0-0.7); EOSINOPHILS % (AUTO) 1.9 %; HCT - HEMATOCRIT 42.2 % (37.0-47.0); HGB - HEMOGLOBIN 14.2 g/dL (12.0-16.0); LYMPHOCYTES # (AUTO) 2.2 10^3/uL (1.5-3.5); LYMPHOCYTES % (AUTO) 28.9 %; MEAN CORPUSCULAR HEMOGLOBIN 31.1 pg (27.0-31.0); MEAN CORPUSCULAR HGB CONC 33.6 g/dL (32.0-36.0); MEAN CORPUSCULAR VOLUME 92.3 fL (81.0-99.0); MEAN PLATELET VOLUME 10.1 fL (7.9-10.8); MONOCYTES # (AUTO) 0.9 10^3/uL (0.0-1.0); MONOCYTES % (AUTO) 11.9 %; NEUTROPHILS # (AUTO) 4.3 10^3/uL (1.5-6.6); NEUTROPHILS % (AUTO) 55.8 %; PLT - PLATELET COUNT 267 10^3/uL (130-450); RED BLOOD COUNT 4.57 10^6/uL (4.20-5.40); WHITE BLOOD COUNT 7.8 x10^3/uL (4.8-10.8)
[2023-04-18 12:33] LABS: ALBUMIN 4.5 g/dL (3.2-5.5); ALBUMIN/GLOBULIN RATIO 1.7 (1.0-2.2); ALKALINE PHOSPHATASE 49 IU/L (42-121); ALT ALANINE AMINOTRANSFERASE 13 IU/L (10-60); AST ASPARTATE AMINOTRANSFERASE 20 IU/L (10-42); BILIRUBIN,TOTAL 0.4 mg/dL (0.2-1.0); BUN - BLOOD UREA NITROGEN 23 mg/dL (6-20); CARBON DIOXIDE - CO2 30 mmol/L (21-32); CHLORIDE 104 mmol/L (101-111); CHOL/HDL RATIO 2.8 (<4.4); CHOLESTEROL 165 mg/dL; GFR - MDRD 53 (>89); GLUCOSE 92 mg/dL (74-104); HDL CHOLESTEROL 59 mg/dL; LDL CHOLESTEROL,CALCULATED 74 mg/dL; LDL/HDL RATIO 1.3 (<4.4); POTASSIUM 4.2 mmol/L (3.5-4.5); SODIUM 139 mmol/L (135-145); TOTAL PROTEIN 7.2 g/dL (6.4-8.9); TRIGLYCERIDES 162 mg/dL (48-352); VLDL CHOLESTEROL 32 mg/dL
[2023-04-18 12:41] LABS: THYROID STIMULATING HORMONE 3.38 uIU/mL (0.34-5.60)
== END 2023-04-18 09:24 | disposition home or self-care (01) ==
LOC: LAB.N 09:23
PROVIDERS: ATTEND Physician Assistant
DX: I10 Essential (primary) hypertension (principal); E78.5 Hyperlipidemia, unspecified; E03.9 Hypothyroidism, unspecified
CPT/HCPCS: 36415; 80053; 80061; 83721; 84439; 84443; 85025

== ENCOUNTER 2023-04-30 07:47 | Outpatient (CLI) | payer MEDICARE, OTHER ==
--- NOTE | 2023-04-30 14:58 | XRAY Report ---
PROCEDURE: Hip BILAT INDICATIONS: BILAT HIP PAIN TECHNIQUE: 3 view(s) of the hip were acquired. COMPARISON: Bilateral hip radiograph on June 05, 2022 FINDINGS: Bones: No fractures or dislocations. Moderate to severe bilateral hip joint space narrowing and jux ta-articular osteophytosis, symmetric. No suspicious bony lesions. The visualized pelvic ring appear s intact. Soft tissues: No suspicious soft tissue calcifications or masses. IMPRESSION: 1.No acute bony abnormality. If there is high clinical suspicion for a radiographically occult fractu re, consider cross-sectional imaging for further evaluation. 2.Moderate to severe bilateral hip osteoarthritis. Reviewed by: Davin Dewey MD on 04/30/2023 2:57 PM PST Approved by: Davin Dewey MD on 04/30/2023 2:57 PM PST Station ID: [id number]
--- NOTE | 2023-04-30 15:02 | XRAY Report ---
PROCEDURE: Lumbar Spine 2 View INDICATIONS: LOW BACK PAIN TECHNIQUE: 3 views of the lumbar spine were acquired. COMPARISON: Lumbar spine radiograph on August 17, 2014. FINDINGS: Bones: 5 [id number]-ohw-wizscia vertebrae are present. There is grade 1 anterolisthesis of L4 on L5 proxima lly 5), stable. Moderate to severe degenerative changes at L4-L5 with osteophytosis, disc height loss and facet arthropathy. Remainder of the spine demonstrate [id number] multilevel degenerative c hanges with osteophytosis, disc height loss and facet arthropathy. There is multilevel osseous neural foraminal narrowing, worse at L5-S1. No vertebral body compression fractures. No suspicious bony l esions. Soft tissues: Overlying bowel gas pattern is normal. No suspicious soft tissue calcifications. Athe rosclerotic calcification of the abdominal aorta. IMPRESSION: 1.No acute osseous abnormality. 2.Multilevel degenerative changes, moderate to severe at L4-L5 where there is stable grade 1 anteroli sthesis. Degenerative changes have mildly increased compared to radiograph dated August 17, 2014. Reviewed by: Davin Dewey MD on 04/30/2023 3:01 PM PST Approved by: Davin Dewey MD on 04/30/2023 3:01 PM PST Station ID: [id number]
== END 2023-04-30 23:59 | disposition home or self-care (01) ==
LOC: DI.WOS 07:47
PROVIDERS: ATTEND Orthopaedic Surgery
DX: M47.816 Spondylosis without myelopathy or radiculopathy, lumbar region (principal); M47.817 Spondylosis without myelopathy or radiculopathy, lumbosacral region; M43.16 Spondylolisthesis, lumbar region; M16.0 Bilateral primary osteoarthritis of hip